=== PATIENT | male | born 1990 | race Hispanic/Latino ===

== ENCOUNTER 2018-11-06 21:30 | Inpatient (IN) | payer MEDICAID ==
[~2018-11-06] VITALS: Ht 185.4 cm; Wt 141.5 kg
[2018-11-06] MEDS ORDERED: CHARCOAL/SORBITOL 50 GM/240 ML SUSP ONE (21:31)
[2018-11-06 21:54] LABS: BASOPHILS % (AUTO) 2.2 % (0.0-5.0); EOSINOPHILS % (AUTO) 2.1 % (0.0-8.0); HEMATOCRIT 46.2 % (42-54); LYMPHOCYTES % (AUTO) 41.4 % (21.0-51.0); MEAN CORPUSCULAR HEMOGLOBIN 31.7 pg (27.0-33.0); MEAN CORPUSCULAR HGB CONC 33.8 g/dL (32.0-36.0); MEAN CORPUSCULAR VOLUME 93.6 fL (79-99); MONOCYTES % (AUTO) 8.9 % (3.0-13.0); NEUTROPHILS % (AUTO) 45.4 % (40.0-77.0); NUCLEATED RED BLOOD CELLS 0.1 % (0.0-0.19); PLATELET COUNT (AUTO) 264 K/uL (130-400); RED BLOOD CELL COUNT(AUTO) 4.93 MIL/uL (4.50-6.20); RED CELL DISTRIBUTION WIDTH 13.3 % (11.0-15.5)
[2018-11-06 21:57] LABS: CARBON DIOXIDE 29 mmol/L (21-32); CHLORIDE 103 mmol/L (101-111); CREATININE 0.8 mg/dL (0.5-1.5); GLOMERULAR FILTR. RATE CALC 122 mL/min (>60); GLUCOSE,RANDOM 133 mg/dL (70-105); POTASSIUM 4.1 mmol/L (3.5-5.1); SODIUM SERUM 142 mmol/L (136-145); UREA NITROGEN, BLOOD 7 mg/dL (7-18)
[2018-11-06 22:09] LABS: ALANINE AMINOTRANSFERASE 176 U/L (12-78); ALBUMIN 3.9 g/dL (3.5-5.0); ASPARTATE AMINOTRANSFERASE 108 U/L (10-37); BILIRUBIN,TOTAL 0.2 mg/dL (0.2-1.0); TOTAL PROTEIN, SERUM 8.2 g/dL (6.0-8.3)
[2018-11-06 22:10] LABS: SALICYLATE < 2.8 mg/dL (2.8-20.0)
[2018-11-06 22:14] LABS: ACETAMINOPHEN 51 mcg/mL (10-29); ALCOHOL, BLOOD 350 mg/dL (0-10)
[2018-11-06 22:24] LABS: INR 0.97 (0.85-1.15); PARTIAL THROMBOPLASTIN TIME 27.6 SEC (26.3-35.5); PROTHROMBIN TIME 10.2 SEC (9.6-11.6)
[2018-11-06 22:30] LABS: BILIRUBIN,URINE Negative (NEGATIVE); COLOR,URINE Yellow (YELLOW); GLUCOSE, URINE (UA) Negative (NEGATIVE); KETONES,URINE Negative (NEGATIVE); LEUKOCYTE ESTERASE ,URINE Negative (NEGATIVE); NITRATE,URINE Negative (NEGATIVE); OCCULT BLOOD,URINE Negative (NEGATIVE); PROTEIN,URINE Negative (NEGATIVE)
[2018-11-06 22:36] LABS: APPEARANCE,URINE CLEAR (CLEAR)
[2018-11-06 22:38] LABS: AMPHET/METH SCREEN,URINE NEGATIVE (NEGATIVE); BARBITURATE SCREEN, URINE NEGATIVE (NEGATIVE); BENZODIAZEPINES SCREEN,URINE NEGATIVE (NEGATIVE); CANNABINOID SCREEN,URINE NEGATIVE (NEGATIVE); COCAINE SCREEN,URINE NEGATIVE (NEGATIVE); OPIATE SCREEN,URINE NEGATIVE (NEGATIVE); PHENCYCLIDINE SCREEN,URINE NEGATIVE (NEGATIVE)
[2018-11-06] MEDS ORDERED: ACETYLCYSTEINE 20% 200MG/ML 30ML VIAL ONE (23:14)
[2018-11-06] MEDS ORDERED: DEXTROSE 5%-WATER 100 ML IV ONE (23:15)
[2018-11-07] MEDS ORDERED: DEXTROSE 5%-WATER 500 ML IV ONE (00:26)
[2018-11-07] MEDS ORDERED: ACETYLCYSTEINE 20% 200MG/ML 30ML VIAL ONE ×2 (00:26→02:11)
[2018-11-07 01:33] LABS: ACETAMINOPHEN 21 mcg/mL (10-29)
[2018-11-07 01:35] LABS: SALICYLATE < 2.8 mg/dL (2.8-20.0)
[2018-11-07 02:14] LABS: ABG BASE EXCESS -2.5 mmol/L (-2.0-3.0); ABG HCO3 23.3 mmol/L (21.0-28.0); ABG OXYGEN SATURATION 95.4 % (95.0-99.0); ABG PCO2 44 mmHg (35-48)
[2018-11-07] MEDS ORDERED: THIAMINE HCL 100 MG/ML 2ML VIAL ONE (02:17)
[2018-11-07] MEDS ORDERED: ONDANSETRON HCL MDV 20ML 2 MG/ML VIAL IVP PRN (03:45)
[2018-11-07] MEDS: LACTATED RINGERS 1000ML 1,000 ML IV SCH ×2 (03:45→11:45)
[2018-11-07] MEDS ORDERED: PHARMACY COMMUNICATION MISC SCH (03:45)
[2018-11-07 04:21] LABS: BASOPHILS % (AUTO) 3.3 % (0.0-5.0); EOSINOPHILS % (AUTO) 2.5 % (0.0-8.0); HEMATOCRIT 43.1 % (42-54); LYMPHOCYTES % (AUTO) 34.9 % (21.0-51.0); MEAN CORPUSCULAR HEMOGLOBIN 31.9 pg (27.0-33.0); MEAN CORPUSCULAR HGB CONC 34.2 g/dL (32.0-36.0); MEAN CORPUSCULAR VOLUME 93.2 fL (79-99); MONOCYTES % (AUTO) 9.8 % (3.0-13.0); NEUTROPHILS % (AUTO) 49.5 % (40.0-77.0); NUCLEATED RED BLOOD CELLS 0.1 % (0.0-0.19); PLATELET COUNT (AUTO) 208 K/uL (130-400); RED BLOOD CELL COUNT(AUTO) 4.62 MIL/uL (4.50-6.20); RED CELL DISTRIBUTION WIDTH 13.2 % (11.0-15.5); WHITE BLOOD COUNT (AUTO) 4.6 K/uL (4.8-10.8)
[2018-11-07 04:33] LABS: CREATININE 0.6 mg/dL (0.5-1.5); POTASSIUM 3.8 mmol/L (3.5-5.1)
[2018-11-07 04:37] LABS: ALBUMIN 3.3 g/dL (3.5-5.0); BILIRUBIN,DIRECT 0.1 mg/dL (0.0-0.3); BILIRUBIN,TOTAL 0.3 mg/dL (0.2-1.0); TOTAL PROTEIN, SERUM 7.4 g/dL (6.0-8.3)
[2018-11-07] MEDS ORDERED: FAMOTIDINE/PF 20 MG/2 ML VIAL IV SCH (09:00)
[2018-11-07] MEDS ORDERED: COMPOUND IV REFRIGERATED 1 EACH IVSOLN MISC PRN (10:30)
[2018-11-07] MEDS ORDERED: FOLIC ACID 5 MG/ML 10 ML VIAL IV SCH (10:30)
[2018-11-07 16:40] VITALS: BP 150/105
[2018-11-07 19:00] VITALS: BP 166/96
[2018-11-07] MEDS: FAMOTIDINE/PF 20 MG/2 ML VIAL IV SCH (21:28)
[2018-11-07] MEDS: HYDRALAZINE HCL 20 MG/ML VIAL IV PRN (21:34)
[2018-11-07 23:00] VITALS: BP 153/82
[2018-11-08] MEDS: LACTATED RINGERS 1000ML 1,000 ML IV SCH ×4 (00:51→19:39)
[2018-11-08 04:00] VITALS: BP 156/88
[2018-11-08 05:59] LABS: HEMATOCRIT 47.2 % (42-54); MEAN CORPUSCULAR HEMOGLOBIN 31.3 pg (27.0-33.0); MEAN CORPUSCULAR HGB CONC 33.6 g/dL (32.0-36.0); MEAN CORPUSCULAR VOLUME 93.3 fL (79-99); PLATELET COUNT (AUTO) 248 K/uL (130-400); RED BLOOD CELL COUNT(AUTO) 5.06 MIL/uL (4.50-6.20); RED CELL DISTRIBUTION WIDTH 13.1 % (11.0-15.5); WHITE BLOOD COUNT (AUTO) 5.5 K/uL (4.8-10.8)
[2018-11-08 06:12] LABS: ALBUMIN 3.7 g/dL (3.5-5.0); BILIRUBIN,DIRECT 0.2 mg/dL (0.0-0.3); BILIRUBIN,TOTAL 1.3 mg/dL (0.2-1.0); CREATININE 0.8 mg/dL (0.5-1.5); POTASSIUM 4.2 mmol/L (3.5-5.1); TOTAL PROTEIN, SERUM 7.7 g/dL (6.0-8.3)
[2018-11-08 08:00] VITALS: BP 145/101
[2018-11-08] MEDS: FAMOTIDINE/PF 20 MG/2 ML VIAL IV SCH ×2 (09:55→21:50)
[2018-11-08] MEDS: THIAMINE HCL 100 MG/ML 2ML VIAL IVP SCH (09:56)
[2018-11-08] MEDS: HYDRALAZINE HCL 20 MG/ML VIAL IV PRN (12:55)
--- NOTE | 2018-11-08 12:55 | NUR ---
PATIENT BLOOD PRESSURE AT 165/105-74 . GAVE HYDRALAZINE 10 MG IV. WILL MONITOR BLOOD PRESSURE IN ONE HOUR.
--- NOTE | 2018-11-08 14:00 | NUR ---
PATIENT BLOOD PRESSURE AT 143/74- 80 . PATIENT IN NO ACUTE DISTRESS NOTED. CONTINUE TO MONITOR BLOOD PRESSURE. SITTER AT BEDSIDE.
[2018-11-08 15:18] VITALS: BP 145/69
--- NOTE | 2018-11-08 15:21 | NUR ---
DR. RAMIREZ HERE INFORMED REGARDING TODA[facility] LABS. NEW ORDERS WERE TO CONTACT POISON [facility] FOR FURTHER RECOMMENDATIONS. SPOKE WITH JUAN CIFUENTES AND NEW ORDERS WERE TO CONTINUE TO MONITOR FOR CONFUSION. NO MUCOMYST IV RECOMMENDED. MONITOR LABS.
--- NOTE | 2018-11-08 15:24 | NUR ---
D/C PLAN CM spoke to pt regarding d/c planning. Pt. is ind. and lives with girlfriend. States she can assist if needed. Pt states he also has support from his mother. CM spoke to pt about mental health history. States this is not first suicide attempt. States he has hx with [facility] but has not f/u in about 2 years. CM explained that [facility] [place] screening will more than likely be ordered prior to discharge. Verbalized understanding. States he is willing to go to inpatient psych facility if ordered. Plan for now is inpatient psych hospital vs home with o/p psych f/u. CM updated nursing. CM to f/u Addendum: 11/08/18 at 1530 by YARY KIRBY CM Amended: Links added.
[2018-11-08] MEDS: FOLIC ACID 5 MG/ML 10 ML VIAL IV SCH (19:36)
[2018-11-08 19:43] VITALS: BP 171/65
[2018-11-08] MEDS ORDERED: PHARMACY COMMUNICATION MISC SCH (20:45)
[2018-11-08 23:26] VITALS: BP 150/77
[2018-11-09] MEDS: LACTATED RINGERS 1000ML 1,000 ML IV SCH ×2 (04:04→13:23)
[2018-11-09 04:16] VITALS: BP 136/85
[2018-11-09 06:01] LABS: HEMATOCRIT 44.9 % (42-54); MEAN CORPUSCULAR HEMOGLOBIN 31.9 pg (27.0-33.0); MEAN CORPUSCULAR HGB CONC 34.6 g/dL (32.0-36.0); PLATELET COUNT (AUTO) 204 K/uL (130-400); RED BLOOD CELL COUNT(AUTO) 4.88 MIL/uL (4.50-6.20); RED CELL DISTRIBUTION WIDTH 13.1 % (11.0-15.5); WHITE BLOOD COUNT (AUTO) 5.8 K/uL (4.8-10.8)
[2018-11-09 06:17] LABS: ALBUMIN 3.6 g/dL (3.5-5.0); BILIRUBIN,DIRECT 0.3 mg/dL (0.0-0.3); BILIRUBIN,TOTAL 1.5 mg/dL (0.2-1.0); CREATININE 0.7 mg/dL (0.5-1.5); POTASSIUM 3.9 mmol/L (3.5-5.1); TOTAL PROTEIN, SERUM 7.7 g/dL (6.0-8.3)
[2018-11-09 08:00] VITALS: BP 153/104
[2018-11-09] MEDS: FAMOTIDINE/PF 20 MG/2 ML VIAL IV SCH ×2 (09:04→20:47)
[2018-11-09] MEDS: MULTIVITAMIN TABLET PO SCH (09:04)
[2018-11-09] MEDS: THIAMINE HCL 100 MG/ML 2ML VIAL IVP SCH (09:04)
[2018-11-09] MEDS: FOLIC ACID 5 MG/ML 10 ML VIAL IV SCH (10:14)
--- NOTE | 2018-11-09 17:00 | NUR ---
ROUNDS WES STRONG VISITED WITH PATIENT. POC DISCUSSED. PER WES STRONG, PATIENT IS MEDICALLY CLEAR AND ORDERS TO CONTACT [facility] AND [facility] TO SCREEN PATIENT. HOWEVER, US ABD ORDER WAS PLACED. VERIFIED WITH TAE ABOUT THIS NEW ORDER AND HE RE-STATED PATIENT IS MEDICALLY CLEAR. CHARGE NURSE AWARE. [facility] SCREENER CONTACTED.
[2018-11-09 23:58] VITALS: BP 119/70
[2018-11-10 05:13] VITALS: BP 123/78
[2018-11-10 06:43] LABS: HEMATOCRIT 44.5 % (42-54); MEAN CORPUSCULAR HEMOGLOBIN 31.7 pg (27.0-33.0); MEAN CORPUSCULAR HGB CONC 34.4 g/dL (32.0-36.0); MEAN CORPUSCULAR VOLUME 92.1 fL (79-99); PLATELET COUNT (AUTO) 207 K/uL (130-400); RED BLOOD CELL COUNT(AUTO) 4.83 MIL/uL (4.50-6.20); RED CELL DISTRIBUTION WIDTH 12.9 % (11.0-15.5); WHITE BLOOD COUNT (AUTO) 6.1 K/uL (4.8-10.8)
[2018-11-10 06:58] LABS: INR 1.03 (0.85-1.15); PARTIAL THROMBOPLASTIN TIME 28.5 SEC (26.3-35.5); PROTHROMBIN TIME 10.8 SEC (9.6-11.6)
[2018-11-10 07:00] VITALS: BP 125/79
[2018-11-10 07:07] LABS: ALBUMIN 3.5 g/dL (3.5-5.0); BILIRUBIN,DIRECT 0.2 mg/dL (0.0-0.3); BILIRUBIN,TOTAL 1.2 mg/dL (0.2-1.0); CREATININE 0.7 mg/dL (0.5-1.5); POTASSIUM 4.1 mmol/L (3.5-5.1); TOTAL PROTEIN, SERUM 7.4 g/dL (6.0-8.3)
[2018-11-10] MEDS: FAMOTIDINE/PF 20 MG/2 ML VIAL IV SCH ×2 (09:00→21:00)
--- NOTE | 2018-11-10 09:00 | NUR ---
DC PLAN? REVIEWED CHART AND NOTES. ORDER NOTED THAT PATIENT IS NOT MEDICALLY CLEAR AT 11/09. WILL FOLLOW UP. PENDING HEART CLINIC CONSULT AT THIS ITME
[2018-11-10] MEDS: LACTATED RINGERS 1000ML 1,000 ML IV SCH ×2 (09:22→21:00)
[2018-11-10] MEDS: THIAMINE HCL 100 MG/ML 2ML VIAL IVP SCH (09:25)
[2018-11-10] MEDS: MULTIVITAMIN TABLET PO SCH (09:26)
[2018-11-10] MEDS: FOLIC ACID 5 MG/ML 10 ML VIAL IV SCH (09:46)
[2018-11-10 11:00] VITALS: BP 127/81
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
[2018-11-10 16:00] VITALS: BP 121/76
--- NOTE | 2018-11-10 17:57 | NUR ---
NIKOLAS NOTE- REVIEWED NOTES BY [place]. ..NIKOLAS ISCONCERNED RE AMT OF ALCOHOL AND POSS WITHDRAWAL. CALL TO RN TO ASK MD FOR POSS MEDS TO PREVENT. CALL TO MATEO CHARGE, RELAYED CONCERN
[2018-11-10 20:00] VITALS: BP 142/80
[2018-11-11] VITALS: BP 132/72
[2018-11-11] MEDS: LACTATED RINGERS 1000ML 1,000 ML IV SCH ×3 (03:48→19:13)
[2018-11-11 04:30] VITALS: BP 130/74
[2018-11-11 05:40] LABS: ALBUMIN 3.3 g/dL (3.5-5.0); BILIRUBIN,DIRECT 0.2 mg/dL (0.0-0.3); BILIRUBIN,TOTAL 0.8 mg/dL (0.2-1.0)
[2018-11-11 07:00] VITALS: BP 140/68
[2018-11-11] MEDS: FAMOTIDINE/PF 20 MG/2 ML VIAL IV SCH ×2 (09:55→21:58)
[2018-11-11] MEDS: THIAMINE HCL 100 MG/ML 2ML VIAL IVP SCH (09:56)
[2018-11-11] MEDS: MULTIVITAMIN TABLET PO SCH (09:56)
[2018-11-11] MEDS: FOLIC ACID 5 MG/ML 10 ML VIAL IV SCH (09:56)
[2018-11-11 11:00] VITALS: BP 128/80
[2018-11-11 16:00] VITALS: BP 135/74
[2018-11-11] MEDS ORDERED: TYLENOL ARTHRITIS PO (16:36)
[2018-11-11 19:30] VITALS: BP 125/70
[2018-11-12 00:20] VITALS: BP 132/71
[2018-11-12] MEDS: LACTATED RINGERS 1000ML 1,000 ML IV SCH ×2 (02:42→09:16)
[2018-11-12 03:29] VITALS: BP 124/60
[2018-11-12 06:03] LABS: ALBUMIN 3.4 g/dL (3.5-5.0); BILIRUBIN,DIRECT 0.2 mg/dL (0.0-0.3); BILIRUBIN,TOTAL 0.6 mg/dL (0.2-1.0); CREATININE 0.8 mg/dL (0.5-1.5); POTASSIUM 3.7 mmol/L (3.5-5.1); TOTAL PROTEIN, SERUM 7.2 g/dL (6.0-8.3)
[2018-11-12 06:30] LABS: HEMOGLOBIN A1C 5.5 % (4.0-6.0)
[2018-11-12 07:15] VITALS: BP 125/74
[2018-11-12 08:23] LABS: HEPATITIS A ANTIBODY IGM Negative (Negative); HEPATITIS B CORE IGM Negative (Negative); HEPATITIS Bs ANTIGEN SCREEN P Negative (Negative)
[2018-11-12] MEDS ORDERED: AMLODIPINE BESYLATE 5 MG TAB PO SCH (09:00)
[2018-11-12] MEDS: FAMOTIDINE/PF 20 MG/2 ML VIAL IV SCH ×2 (09:13→20:59)
[2018-11-12] MEDS: FOLIC ACID 5 MG/ML 10 ML VIAL IV SCH (09:13)
[2018-11-12] MEDS: MULTIVITAMIN TABLET PO SCH (09:13)
[2018-11-12] MEDS: THIAMINE HCL 100 MG/ML 2ML VIAL IVP SCH (09:13)
[2018-11-12 10:50] VITALS: BP 135/61
[2018-11-12 19:48] VITALS: BP 152/75
[2018-11-13 00:07] VITALS: BP 156/80
[2018-11-13 03:00] VITALS: BP 151/78
[2018-11-13 05:46] LABS: ALBUMIN 3.4 g/dL (3.5-5.0); BILIRUBIN,DIRECT 0.2 mg/dL (0.0-0.3); BILIRUBIN,TOTAL 0.6 mg/dL (0.2-1.0); PHOSPHORUS 3.5 mg/dL (2.5-4.9); TOTAL PROTEIN, SERUM 7.3 g/dL (6.0-8.3)
[2018-11-13] MEDS: FAMOTIDINE/PF 20 MG/2 ML VIAL IV SCH ×2 (10:34→22:28)
[2018-11-13] MEDS: MULTIVITAMIN TABLET PO SCH (10:34)
[2018-11-13] MEDS: THIAMINE HCL 100 MG/ML 2ML VIAL IVP SCH (10:34)
[2018-11-13] MEDS: FOLIC ACID 5 MG/ML 10 ML VIAL IV SCH (10:43)
[2018-11-13 20:00] VITALS: BP 130/73
[2018-11-13 23:40] VITALS: BP 131/53
[2018-11-14 03:59] VITALS: BP 124/66
[2018-11-14 06:04] LABS: ALBUMIN 3.6 g/dL (3.5-5.0); BILIRUBIN,DIRECT 0.2 mg/dL (0.0-0.3); BILIRUBIN,TOTAL 0.6 mg/dL (0.2-1.0); TOTAL PROTEIN, SERUM 7.6 g/dL (6.0-8.3)
[2018-11-14 08:00] VITALS: BP 125/66
--- NOTE | 2018-11-14 08:00 | NUR ---
AM ROUNDS: 1:[address] AND IN ROOM.
[2018-11-14] MEDS: FOLIC ACID 5 MG/ML 10 ML VIAL IV SCH (09:00)
[2018-11-14] MEDS ORDERED: AMLODIPINE BESYLATE 5 MG TAB PO SCH (09:00)
[2018-11-14] MEDS: FAMOTIDINE/PF 20 MG/2 ML VIAL IV SCH (10:17)
[2018-11-14] MEDS: THIAMINE HCL 100 MG/ML 2ML VIAL IVP SCH (10:17)
[2018-11-14] MEDS: MULTIVITAMIN TABLET PO SCH (10:18)
[2018-11-14 11:00] VITALS: BP 137/84
--- NOTE | 2018-11-14 12:25 | NUR ---
[facility] [place] CRISIS LINE CALLED REQUEST FOR ASSESSMENT FOR PATIENT. PT MEDICALLY CLEARED FOR DISCHARGE WITH DISPOSITION PER [facility]'S RECOMMENDATIONS
[2018-11-14 16:00] VITALS: BP 124/73
--- NOTE | 2018-11-14 18:14 | NUR ---
REPORT CALLED IN TO [facility], SPOKE TO MINDA HERNANDEZ RN
--- NOTE | 2018-11-14 18:47 | NUR ---
DISCHARGED TO OFFICER [facility]OM WILL TRANSPORT MR. HUNTER TO [facility] IN [place]. COPY OF CHART SENT.SALINE LOCK REMOVED PRIOR TO DISCHARGE.
== END 2018-11-14 18:46 | DRG 817 ==
LOC: EDH 21:30 → EDHIP 21:31 → 3AH 11-07 16:49 → 3BH 11-12 11:43
PROVIDERS: ADMIT Internal Medicine Critical Care Medicine; ATTEND Internal Medicine Critical Care Medicine
DX: T39.1X2A Poisoning by 4-Aminophenol derivatives, intentional self-harm, initial encounter (principal); K76.0 Fatty (change of) liver, not elsewhere classified; E66.01 Morbid (severe) obesity due to excess calories; K70.10 Alcoholic hepatitis without ascites; F10.10 Alcohol abuse, uncomplicated; Z68.41 Body mass index [BMI] 40.0-44.9, adult; F17.200 Nicotine dependence, unspecified, uncomplicated; F32.9 Major depressive disorder, single episode, unspecified; E78.5 Hyperlipidemia, unspecified; I10 Essential (primary) hypertension; Z91.5 Personal history of self-harm; Y92.89 Other specified places as the place of occurrence of the external cause
CPT/HCPCS: 36415; 36600; 76705; 80048; 80053; 80061; 80074; 80076; 80305; 81003; 82150; 82550; 82803; 83036; 83690; 83735; 84100; 85025; 85027; 85610; 85730; 86701; 87390; 93005; G0378; G0480; G0481; J0360; J3411; J3490; J7060; J7120; J7608

== ENCOUNTER 2018-12-09 00:02 | Emergency (ER) | payer MEDICAID ==
[2018-12-09 00:36] LABS: BASOPHILS % (AUTO) 2.7 % (0.0-5.0); EOSINOPHILS % (AUTO) 0.5 % (0.0-8.0); HEMATOCRIT 44.9 % (42-54); LYMPHOCYTES % (AUTO) 29.2 % (21.0-51.0); MEAN CORPUSCULAR HEMOGLOBIN 31.2 pg (27.0-33.0); MEAN CORPUSCULAR HGB CONC 34.7 g/dL (32.0-36.0); MEAN CORPUSCULAR VOLUME 89.8 fL (79-99); MONOCYTES % (AUTO) 7.2 % (3.0-13.0); NEUTROPHILS % (AUTO) 60.4 % (40.0-77.0); PLATELET COUNT (AUTO) 177 K/uL (130-400); RED CELL DISTRIBUTION WIDTH 12.9 % (11.0-15.5); WHITE BLOOD COUNT (AUTO) 6.6 K/uL (4.8-10.8)
[2018-12-09 00:39] LABS: CARBON DIOXIDE 26 mmol/L (21-32); CHLORIDE 104 mmol/L (101-111); CREATININE 0.8 mg/dL (0.5-1.5); GLOMERULAR FILTR. RATE CALC 122 mL/min (>60); GLUCOSE,RANDOM 116 mg/dL (70-105); POTASSIUM 3.7 mmol/L (3.5-5.1); SODIUM SERUM 143 mmol/L (136-145); UREA NITROGEN, BLOOD 4 mg/dL (7-18)
[2018-12-09 00:44] LABS: ALANINE AMINOTRANSFERASE 61 U/L (12-78); ALBUMIN 4.1 g/dL (3.5-5.0); ASPARTATE AMINOTRANSFERASE 73 U/L (10-37); BILIRUBIN,TOTAL 0.4 mg/dL (0.2-1.0); TOTAL PROTEIN, SERUM 8.2 g/dL (6.0-8.3)
[2018-12-09 00:48] LABS: ACETAMINOPHEN < 1 mcg/mL (10-29); SALICYLATE < 2.8 mg/dL (2.8-20.0)
[2018-12-09 00:50] LABS: ALCOHOL, BLOOD 416 mg/dL (0-10)
[2018-12-09] MEDS ORDERED: ONDANSETRON HCL 4 MG/2 ML VIAL ONE (02:03)
[2018-12-09 07:50] LABS: AMPHET/METH SCREEN,URINE NEGATIVE (NEGATIVE); BARBITURATE SCREEN, URINE NEGATIVE (NEGATIVE); BENZODIAZEPINES SCREEN,URINE NEGATIVE (NEGATIVE); CANNABINOID SCREEN,URINE NEGATIVE (NEGATIVE); COCAINE SCREEN,URINE POSITIVE (NEGATIVE); OPIATE SCREEN,URINE NEGATIVE (NEGATIVE); PHENCYCLIDINE SCREEN,URINE NEGATIVE (NEGATIVE)
[2018-12-09 07:52] LABS: APPEARANCE,URINE CLEAR (CLEAR); BILIRUBIN,URINE NEGATIVE (NEGATIVE); COLOR,URINE YELLOW (YELLOW); GLUCOSE, URINE (UA) NEGATIVE (NEGATIVE); KETONES,URINE NEGATIVE (NEGATIVE); LEUKOCYTE ESTERASE ,URINE NEGATIVE (NEGATIVE); NITRATE,URINE NEGATIVE (NEGATIVE); OCCULT BLOOD,URINE NEGATIVE (NEGATIVE); PH,URINE 5.5 (5.0-8.0); PROTEIN,URINE NEGATIVE (NEGATIVE); UROBILINOGEN,URINE 0.2 mg/dL (0.2-1.0)
[2018-12-09] MEDS ORDERED: SODIUM CHLORIDE 0.9% 1000ML 1,000 ML IV ONE (22:46)
== END 2018-12-09 18:51 | disposition home or self-care (01) ==
LOC: EDH 00:02
DX: T39.1X2A Poisoning by 4-Aminophenol derivatives, intentional self-harm, initial encounter (principal); F10.10 Alcohol abuse, uncomplicated; F14.10 Cocaine abuse, uncomplicated; I10 Essential (primary) hypertension; F31.9 Bipolar disorder, unspecified; F20.9 Schizophrenia, unspecified; F41.9 Anxiety disorder, unspecified; Z79.899 Other long term (current) drug therapy; Z72.0 Tobacco use; Y92.89 Other specified places as the place of occurrence of the external cause
CPT/HCPCS: 36415; 80053; 80305; 81003; 85025; 99284; G0480 ×5; G0481; J7030; J2405

== ENCOUNTER 2018-12-12 17:39 | Inpatient (IN) | payer MEDICAID ==
[~2018-12-12] VITALS: Ht 185.4 cm; Wt 140.2 kg
[2018-12-12] MEDS ORDERED: NITROGLYCERIN 0.4 MG SL TAB SL ONE (17:45)
[2018-12-12] MEDS ORDERED: MORPHINE SULFATE 2 MG/ML 1ML SYG ONE (17:53)
[2018-12-12 18:04] LABS: BASOPHILS % (AUTO) 1.4 % (0.0-5.0); EOSINOPHILS % (AUTO) 0.4 % (0.0-8.0); HEMATOCRIT 43.3 % (42-54); LYMPHOCYTES % (AUTO) 13.8 % (21.0-51.0); MEAN CORPUSCULAR HEMOGLOBIN 31.1 pg (27.0-33.0); MEAN CORPUSCULAR HGB CONC 35.1 g/dL (32.0-36.0); MEAN CORPUSCULAR VOLUME 88.6 fL (79-99); MONOCYTES % (AUTO) 8.6 % (3.0-13.0); NEUTROPHILS % (AUTO) 75.8 % (40.0-77.0); NUCLEATED RED BLOOD CELLS 0.1 % (0.0-0.19); PLATELET COUNT (AUTO) 133 K/uL (130-400); RED BLOOD CELL COUNT(AUTO) 4.89 MIL/uL (4.50-6.20); RED CELL DISTRIBUTION WIDTH 12.5 % (11.0-15.5); WHITE BLOOD COUNT (AUTO) 9.9 K/uL (4.8-10.8)
[2018-12-12 18:12] LABS: CREATININE 0.6 mg/dL (0.5-1.5); POTASSIUM 3.8 mmol/L (3.5-5.1)
[2018-12-12 18:15] LABS: INR 0.97 (0.85-1.15); PARTIAL THROMBOPLASTIN TIME 28.6 SEC (26.3-35.5); PROTHROMBIN TIME 10.2 SEC (9.6-11.6)
[2018-12-12 18:23] LABS: ALBUMIN 3.8 g/dL (3.5-5.0); BILIRUBIN,TOTAL 1.3 mg/dL (0.2-1.0); TOTAL PROTEIN, SERUM 8.1 g/dL (6.0-8.3)
[2018-12-12] MEDS: IBUPROFEN 600 MG TABLET PO SCH (18:45)
[2018-12-12] MEDS ORDERED: IBUPROFEN 600 MG TABLET ONE (18:47)
[2018-12-12 19:35] LABS: TROPONIN I 0.14 ng/mL (0.00-0.06)
[2018-12-12] MEDS: COLCHICINE 0.6 MG TABLET PO SCH (21:00)
[2018-12-12] MEDS ORDERED: ASPIRIN 325MG EC TAB 325 MG TABLET.DR PO STA (21:04)
[2018-12-12] MEDS ORDERED: ACETAMINOPHEN 325 MG TAB PO PRN ×2 (21:30)
[2018-12-12] MEDS ORDERED: HYDRALAZINE HCL 20 MG/ML VIAL IV PRN (21:30)
[2018-12-12] MEDS ORDERED: NITROGLYCERIN 0.4 MG SL TAB SL PRN (21:30)
[2018-12-12] MEDS ORDERED: ONDANSETRON HCL 4 MG/2 ML VIAL IV PRN (21:30)
[2018-12-12] MEDS ORDERED: IBUPROFEN 600 MG TABLET PO SCH (22:00)
[2018-12-12] MEDS ORDERED: ASPIRIN 325MG EC TAB 325 MG TABLET.DR PO ONE (22:49)
[2018-12-12 23:00] VITALS: BP 103/57
[2018-12-12] MEDS: SODIUM CHLORIDE 0.9% 1000ML 1,000 ML IV SCH (23:28)
[2018-12-13 00:05] LABS: TROPONIN I 0.34 ng/mL (0.00-0.06)
[2018-12-13] MEDS ORDERED: LORAZEPAM 2 MG/ML 1 ML VIAL IVP PRN ×4 (01:30)
[2018-12-13] MEDS ORDERED: PROMETHAZINE HCL 25 MG TABLET PO PRN (01:30)
[2018-12-13] MEDS ORDERED: CHLORDIAZEPOXIDE HCL 25 MG CAP PO PRN ×4 (01:30)
[2018-12-13 01:54] LABS: APPEARANCE,URINE Clear (CLEAR); BILIRUBIN,URINE Moderate (NEGATIVE); COLOR,URINE Orange (YELLOW); GLUCOSE, URINE (UA) Negative (NEGATIVE); KETONES,URINE 40 mg/dL (NEGATIVE); LEUKOCYTE ESTERASE ,URINE Trace (NEGATIVE); NITRATE,URINE Positive (NEGATIVE); OCCULT BLOOD,URINE Negative (NEGATIVE); PH,URINE 5.5 (5.0-8.0); PROTEIN,URINE POS 1+ mg/dL (NEGATIVE)
[2018-12-13 02:03] LABS: AMPHET/METH SCREEN,URINE NEGATIVE (NEGATIVE); BARBITURATE SCREEN, URINE NEGATIVE (NEGATIVE); BENZODIAZEPINES SCREEN,URINE NEGATIVE (NEGATIVE); CANNABINOID SCREEN,URINE NEGATIVE (NEGATIVE); COCAINE SCREEN,URINE POSITIVE (NEGATIVE); OPIATE SCREEN,URINE POSITIVE (NEGATIVE); PHENCYCLIDINE SCREEN,URINE NEGATIVE (NEGATIVE)
[2018-12-13] MEDS: IBUPROFEN 600 MG TABLET PO SCH ×3 (02:18→21:42)
[2018-12-13] MEDS: DIPHENHYDRAMINE HCL 25 MG CAPSULE PO SCH ×2 (02:18→21:42)
[2018-12-13 02:20] LABS: BACTERIA,URINE None Seen /HPF (None Seen); MUCUS,URINE Moderate LPF (None Seen); RBC,URINE None Seen /HPF (0-1); SQUAMOUS EPITHELIAL CELL,UR Rare /HPF (0-2); WBC,URINE None Seen /HPF (0-1)
[2018-12-13 03:00] VITALS: BP 136/63
[2018-12-13] MEDS ORDERED: ZOSYN 3.375GM+NS 50ML 50 ML IV SCH (06:00)
[2018-12-13 06:22] LABS: EOSINOPHILS % (AUTO) 1.8 % (0.0-8.0); LYMPHOCYTES % (AUTO) 21.6 % (21.0-51.0); MEAN CORPUSCULAR HEMOGLOBIN 30.6 pg (27.0-33.0); MEAN CORPUSCULAR HGB CONC 34.2 g/dL (32.0-36.0); MEAN CORPUSCULAR VOLUME 89.5 fL (79-99); MONOCYTES % (AUTO) 9.5 % (3.0-13.0); NEUTROPHILS % (AUTO) 66.1 % (40.0-77.0); PLATELET COUNT (AUTO) 132 K/uL (130-400); RED BLOOD CELL COUNT(AUTO) 4.81 MIL/uL (4.50-6.20); RED CELL DISTRIBUTION WIDTH 12.9 % (11.0-15.5); WHITE BLOOD COUNT (AUTO) 7.7 K/uL (4.8-10.8)
[2018-12-13 07:00] VITALS: BP 152/88
[2018-12-13 07:13] LABS: MAGNESIUM 2.1 mg/dL (1.80-2.40); PHOSPHORUS 3.1 mg/dL (2.5-4.9); TROPONIN I 0.4 ng/mL (0.00-0.06)
[2018-12-13] MEDS: SODIUM CHLORIDE 0.9% 1000ML 1,000 ML IV SCH (07:19)
[2018-12-13 07:44] LABS: ALBUMIN 3.4 g/dL (3.5-5.0); BILIRUBIN,TOTAL 1.7 mg/dL (0.2-1.0); CREATININE 0.7 mg/dL (0.5-1.5); POTASSIUM 3.6 mmol/L (3.5-5.1); TOTAL PROTEIN, SERUM 7.4 g/dL (6.0-8.3)
--- NOTE | 2018-12-13 08:00 | NUR ---
ASSESSMENT PT IS AAOX3. DENIES CP DENIES SOB WHILE AT REST. DENIES NV NO COMPLAINTS. SITTING UPRIGHT IN BED, TOLERATED MEAL AND MEDS. CALL LIGHT WITHIN REACH.
[2018-12-13] MEDS: MULTIVITAMIN TABLET PO SCH (08:10)
[2018-12-13] MEDS: COLCHICINE 0.6 MG TABLET PO SCH ×2 (08:10→21:40)
[2018-12-13] MEDS: ENOXAPARIN SODIUM 30 MG/0.3 ML SQ SCH (08:11)
[2018-12-13] MEDS: PANTOPRAZOLE SODIUM 40 MG TABLET.DR PO SCH (08:11)
[2018-12-13] MEDS: FOLIC ACID 1 MG TABLET PO SCH (08:11)
[2018-12-13] MEDS ORDERED: PANTOPRAZOLE SODIUM 40 MG TABLET.DR PO SCH (09:00)
[2018-12-13] MEDS ORDERED: ASPIRIN 325MG EC TAB 325 MG TABLET.DR PO SCH (09:00)
[2018-12-13] MEDS ORDERED: FAMOTIDINE 20MG TAB 20 MG TAB PO SCH (09:00)
[2018-12-13] MEDS ORDERED: THIAMINE HCL 100 MG/ML 2ML VIAL IM SCH (09:00)
--- NOTE | 2018-12-13 10:30 | NUR ---
DR SUKHWINDER BURNS SAW PATIENT ORDERS RECEIVED
[2018-12-13 11:00] VITALS: BP 144/80
[2018-12-13 16:00] VITALS: BP 132/75
--- NOTE | 2018-12-13 17:53 | NUR ---
cm note met with patient and resides at home with mother and sister, pt is independent with adls and ambulation. no dme. goes to [facility] for md followup and discussed with pt importance of not abusing alcohol and drugs, affects his clinical health. pt states he understands, and he has been going to [facility] as OP for assitance with alcohol and drug recovery, provided pt with list of drug and alcohol resources. states he will continue to avoid drug abuse. and will follwup with mds. and clinic. Addendum: 12/13/18 at 1756 by VALENTINA STEARNS Amended: Links added.
[2018-12-13 18:52] VITALS: BP 136/73
--- NOTE | 2018-12-13 20:10 | NUR ---
ASSESSMENT PT RESTING QUIETLY IN BED. PT AAOX4, PLEASANT, AND COOPERATIVE, NSR, ROOM AIR, UP WITH ASSISTANCE. PT C/O PAIN "2/10" ON PAIN SCALE CHEST TO RIGHT SHOULDER. SEE EJOSE. CALL JIMENES WITHIN REACH. ASSESSMENT COMPLETED, SEE FLOW SHEET.
--- NOTE | 2018-12-13 22:35 | NUR ---
PT REQUESTING SLEEPING PILL EXPLOSIVE ORDNANCE DISPOSAL TECHNICIAN FOR HOSPITALIST. MADE AWARE OF PT REQUEST FOR SLEEPING PILL. SEE ORDERS
[2018-12-13] MEDS ORDERED: TEMAZEPAM 7.5 MG CAPSULE PO ONE (23:00)
[2018-12-13 23:20] VITALS: BP 139/76
--- NOTE | 2018-12-14 00:10 | NUR ---
UP-DATE PT RESTING QUIETLY IN BED, CALLBELL WITHIN REACH. CURRENTLY DENIES ANY PAIN
[2018-12-14] MEDS ORDERED: TEMAZEPAM 7.5 MG CAPSULE PO ONE (00:22)
[2018-12-14 03:32] VITALS: BP 151/72
[2018-12-14 04:09] LABS: HEMATOCRIT 41.3 % (42-54); MEAN CORPUSCULAR HGB CONC 34.4 g/dL (32.0-36.0); MEAN CORPUSCULAR VOLUME 89.9 fL (79-99); NUCLEATED RED BLOOD CELLS 0.1 % (0.0-0.19); PLATELET COUNT (AUTO) 130 K/uL (130-400); RED BLOOD CELL COUNT(AUTO) 4.59 MIL/uL (4.50-6.20); WHITE BLOOD COUNT (AUTO) 6.9 K/uL (4.8-10.8)
[2018-12-14 04:24] LABS: EOSINOPHILS % (MANUAL) 6 % (1-6); LYMPHOCYTES % (MANUAL) 38 % (22-44); MAN.DIFF COMMENT-IMPRESSION MANUAL DIFFERENTIAL; MONOCYTES % (MANUAL) 4 % (2-9); PLATELET MORPHOLOGY COMMENT SLIGHTLY DECREASED; SEGMENTED NEUTROPHILS % 52 % (40-70)
[2018-12-14 04:28] LABS: CREATININE 0.8 mg/dL (0.5-1.5); POTASSIUM 3.7 mmol/L (3.5-5.1); TROPONIN I 0.13 ng/mL (0.00-0.06)
--- NOTE | 2018-12-14 04:46 | NUR ---
UP-DATE PT RESTING QUIETLY IN BED, CURRENTLY DENIES ANY PAIN OR S.O.B. CALLBELL WITHIN REACH.
[2018-12-14] MEDS: IBUPROFEN 600 MG TABLET PO SCH (05:54)
[2018-12-14 07:00] VITALS: BP 132/70
--- NOTE | 2018-12-14 07:00 | NUR ---
REPORT REPORT GIVEN TO OFELIA CIFUENTES
--- NOTE | 2018-12-14 08:00 | NUR ---
ASSESSMENT AAOX4 DENIES CP DENIES SOB DENIES NV NO COMPLAINTS, APPEARS COMFORTABLE. RESTING IN BED, CALL LIGHT WITHIN REACH.
[2018-12-14] MEDS: COLCHICINE 0.6 MG TABLET PO SCH (08:04)
[2018-12-14] MEDS: PANTOPRAZOLE SODIUM 40 MG TABLET.DR PO SCH (08:05)
[2018-12-14] MEDS: MULTIVITAMIN TABLET PO SCH (08:05)
[2018-12-14] MEDS: FOLIC ACID 1 MG TABLET PO SCH (08:05)
[2018-12-14] MEDS: ENOXAPARIN SODIUM 30 MG/0.3 ML SQ SCH (08:06)
[2018-12-14] MEDS ORDERED: ASPIRIN 81MG TAB.CHEW PO SCH (09:00)
[2018-12-14] MEDS ORDERED: THIAMINE HCL 100 MG/ML 2ML VIAL IV SCH (09:00)
[2018-12-14 11:00] VITALS: BP 137/80
--- NOTE | 2018-12-14 12:00 | NUR ---
DR PRETTY ROUNDED OK TO DC HOME TODAY.
--- NOTE | 2018-12-14 12:48 | NUR ---
DISCHARGE TO HOME PT AND FAMILY VERBALIZE DC INSTRUCTIONS UNDERSTANDING, AGREE TO TAKE MEDICATION ORDERED AND FOLLOW UP WITH DR QUEEN. AGREE TO STOP ILLICIT DRUG USE. ALL QUESTIONS ANSWERED, PIV REMOVED CATH TIP INTACT TELE PACK REMOVED .DOWN VIA WC TO VEHICLE.
== END 2018-12-14 12:15 | disposition home or self-care (01) | DRG 207 ==
LOC: EDH 17:39 → EDHIP 17:40 → 2AH 23:05
PROVIDERS: ADMIT Internal Medicine; ATTEND Internal Medicine
DX: I30.9 Acute pericarditis, unspecified (principal); E66.01 Morbid (severe) obesity due to excess calories; N39.0 Urinary tract infection, site not specified; Z68.41 Body mass index [BMI] 40.0-44.9, adult; F14.10 Cocaine abuse, uncomplicated; F41.9 Anxiety disorder, unspecified; F10.10 Alcohol abuse, uncomplicated; F17.200 Nicotine dependence, unspecified, uncomplicated; F20.9 Schizophrenia, unspecified; F31.9 Bipolar disorder, unspecified; I10 Essential (primary) hypertension; Z82.3 Family history of stroke; Z83.3 Family history of diabetes mellitus; Z82.49 Family history of ischemic heart disease and other diseases of the circulatory system
CPT/HCPCS: 36415; 71045; 80048; 80053; 80061; 80305; 81001; 82550; 83735; 83874; 84100; 84484; 85025; 85610; 85651; 85730; 86140; 87040; 87088; 93005; 93306; 99291; G0378; J1650; J2543; J3411; Q0163

== ENCOUNTER 2020-01-01 09:01 | Emergency (ER) | payer MEDICAID, OTHER ==
[2020-01-01 12:05] LABS: CREATININE 0.7 mg/dL (0.5-1.5); POTASSIUM 3.5 mmol/L (3.5-5.1)
[2020-01-01 12:10] LABS: ALBUMIN 3.7 g/dL (3.5-5.0); BILIRUBIN,TOTAL 0.9 mg/dL (0.2-1.0); TOTAL PROTEIN, SERUM 7.9 g/dL (6.0-8.3)
[2020-01-01 12:21] LABS: BASOPHILS % (AUTO) 1.5 % (0.0-5.0); HEMATOCRIT 39.1 % (42-54); LYMPHOCYTES % (AUTO) 38.3 % (21.0-51.0); MEAN CORPUSCULAR HEMOGLOBIN 31.1 pg (27.0-33.0); MEAN CORPUSCULAR HGB CONC 34.8 g/dL (32.0-36.0); MEAN CORPUSCULAR VOLUME 89.5 fL (79-99); MONOCYTES % (AUTO) 9.3 % (3.0-13.0); NEUTROPHILS % (AUTO) 49.6 % (40.0-77.0); PLATELET COUNT (AUTO) 58 K/uL (130-400); RED BLOOD CELL COUNT(AUTO) 4.37 MIL/uL (4.50-6.20); RED CELL DISTRIBUTION WIDTH 13.5 % (11.0-15.5); WHITE BLOOD COUNT (AUTO) 5.9 K/uL (4.8-10.8)
== END 2020-01-01 13:44 | disposition home or self-care (01) ==
LOC: EDH 09:01
DX: F41.1 Generalized anxiety disorder (principal); R06.02 Shortness of breath; R07.89 Other chest pain; F10.20 Alcohol dependence, uncomplicated; R11.2 Nausea with vomiting, unspecified; I10 Essential (primary) hypertension; F31.9 Bipolar disorder, unspecified; F20.9 Schizophrenia, unspecified; F14.10 Cocaine abuse, uncomplicated
CPT/HCPCS: 36415; 71045; 80053; 85025; 93005; 96360

== ENCOUNTER 2021-02-19 11:09 | Inpatient (IN) | payer SELFPAY ==
[~2021-02-19] VITALS: Ht 182.9 cm; Wt 90.0 kg
[2021-02-19 11:55] VITALS: BP 154/96
[2021-02-19 12:00] LABS: BASOPHILS % (AUTO) 1.6 % (0.0-5.0); EOSINOPHILS % (AUTO) 5.8 % (0.0-8.0); HEMATOCRIT 39.5 % (42-54); LYMPHOCYTES % (AUTO) 32.2 % (21.0-51.0); MEAN CORPUSCULAR HEMOGLOBIN 30.5 pg (27.0-33.0); MEAN CORPUSCULAR HGB CONC 34.2 g/dL (32.0-36.0); MEAN CORPUSCULAR VOLUME 89.2 fL (79-99); MONOCYTES % (AUTO) 9.5 % (3.0-13.0); NEUTROPHILS % (AUTO) 50.5 % (40.0-77.0); PLATELET COUNT (AUTO) 68 K/uL (130-400); RED BLOOD CELL COUNT(AUTO) 4.43 MIL/uL (4.50-6.20); RED CELL DISTRIBUTION WIDTH 13.5 % (11.0-15.5); WHITE BLOOD COUNT (AUTO) 4.9 K/uL (4.8-10.8)
[2021-02-19 12:08] LABS: INR 1.17 (0.85-1.15); PROTHROMBIN TIME 12.6 SEC (9.6-11.6)
[2021-02-19 12:09] LABS: PARTIAL THROMBOPLASTIN TIME 30.4 SEC (26.3-35.5)
[2021-02-19 12:42] LABS: CREATININE 0.6 mg/dL (0.5-1.5); POTASSIUM 3.7 mmol/L (3.5-5.1)
[2021-02-19] MEDS ORDERED: ONDANSETRON HCL 4 MG/2 ML VIAL IVP ONE (12:45)
[2021-02-19] MEDS ORDERED: SODIUM CHLORIDE 0.9% 1000ML 1,000 ML IV ONE (12:45)
[2021-02-19] MEDS ORDERED: PANTOPRAZOLE 40 MG/VIAL IVP ONE (12:45)
[2021-02-19 12:46] LABS: ALBUMIN 3.7 g/dL (3.5-5.0); BILIRUBIN,TOTAL 1.3 mg/dL (0.2-1.0); TOTAL PROTEIN, SERUM 8.1 g/dL (6.0-8.3)
[2021-02-19 13:07] VITALS: BP 168/74
[2021-02-19 13:32] LABS: LIPASE 82 U/L (114-286); MYOGLOBIN 108 ng/mL (10-92); TROPONIN I < 0.04 ng/mL (0.00-0.06)
[2021-02-19 13:44] LABS: CREATINE KINASE, TOTAL 1352 U/L (21-232)
[2021-02-19 14:12] VITALS: BP 133/81
[2021-02-19] MEDS: OXYMETAZOLINE HCL SPRAY 15 ML BOTTLE EN SCH (14:47)
[2021-02-19 15:00] LABS: APPEARANCE,URINE Clear (CLEAR); BILIRUBIN,URINE Negative (NEGATIVE); COLOR,URINE Yellow (YELLOW); GLUCOSE, URINE (UA) Negative (NEGATIVE); KETONES,URINE Trace mg/dL (NEGATIVE); LEUKOCYTE ESTERASE ,URINE Negative (NEGATIVE); NITRATE,URINE Negative (NEGATIVE); OCCULT BLOOD,URINE Negative (NEGATIVE); PH,URINE 7.5 (5.0-8.0); PROTEIN,URINE Negative (NEGATIVE)
[2021-02-19] MEDS ORDERED: PANTOPRAZOLE 40 MG/VIAL IVP SCH (15:00)
[2021-02-19] MEDS ORDERED: LORAZEPAM 2 MG/ML 1 ML VIAL IVP PRN (15:00)
[2021-02-19] MEDS ORDERED: OCTREOTIDE ACETATE 100 MCG/ML AMP SQ SCH (15:00)
[2021-02-19] MEDS ORDERED: CHLORDIAZEPOXIDE HCL 25 MG CAP PO PRN (15:00)
[2021-02-19] MEDS ORDERED: PHARMACY COMMUNICATION MISC PRN (15:00)
[2021-02-19 15:07] LABS: AMPHET/METH SCREEN,URINE NEGATIVE (NEGATIVE); BARBITURATE SCREEN, URINE NEGATIVE (NEGATIVE); BENZODIAZEPINES SCREEN,URINE NEGATIVE (NEGATIVE); CANNABINOID SCREEN,URINE POSITIVE (NEGATIVE); COCAINE SCREEN,URINE POSITIVE (NEGATIVE); OPIATE SCREEN,URINE NEGATIVE (NEGATIVE); PHENCYCLIDINE SCREEN,URINE NEGATIVE (NEGATIVE)
[2021-02-19 16:17] LABS: HEMATOCRIT 38.9 % (42-54)
[2021-02-19] MEDS: M.V.I. IV [ADULT] 10 ML, FOLIC ACID 1 MG, THIAMINE HCL 100 MG in SODIUM CHLORIDE 0.9% 1... IV NR (16:17)
[2021-02-19] MEDS: PANTOPRAZOLE SODIUM 80 MG in SODIUM CHLORIDE 0.9% 100 ML IVP SCH (16:18)
[2021-02-19] MEDS: OCTREOTIDE ACETATE 1,250 MCG in SODIUM CHLORIDE 0.9% 250 ML IV SCH (16:18)
[2021-02-19 17:29] VITALS: BP 133/81
[2021-02-19 19:35] VITALS: BP 141/93
[2021-02-20] VITALS (8 sets, daily range): BP systolic 132–161; BP diastolic 64–85
[2021-02-20] MEDS ORDERED: PANTOPRAZOLE 40 MG/VIAL ONE (05:27)
[2021-02-20 05:32] LABS: BASOPHILS % (AUTO) 1.6 % (0.0-5.0); EOSINOPHILS % (AUTO) 6.8 % (0.0-8.0); HEMATOCRIT 37.3 % (42-54); LYMPHOCYTES % (AUTO) 16.1 % (21.0-51.0); MEAN CORPUSCULAR HEMOGLOBIN 30.5 pg (27.0-33.0); MEAN CORPUSCULAR VOLUME 89.4 fL (79-99); MONOCYTES % (AUTO) 10.6 % (3.0-13.0); NEUTROPHILS % (AUTO) 64.6 % (40.0-77.0); PLATELET COUNT (AUTO) 51 K/uL (130-400); RED BLOOD CELL COUNT(AUTO) 4.17 MIL/uL (4.50-6.20); RED CELL DISTRIBUTION WIDTH 13.2 % (11.0-15.5); WHITE BLOOD COUNT (AUTO) 3.7 K/uL (4.8-10.8)
[2021-02-20 06:02] LABS: ALBUMIN 3.5 g/dL (3.5-5.0); BILIRUBIN,TOTAL 2.3 mg/dL (0.2-1.0); CREATININE 0.7 mg/dL (0.5-1.5); TOTAL PROTEIN, SERUM 7.6 g/dL (6.0-8.3)
[2021-02-20] MEDS: PANTOPRAZOLE SODIUM 80 MG in SODIUM CHLORIDE 0.9% 100 ML IVP SCH ×2 (06:13→15:43)
[2021-02-20] MEDS: M.V.I. IV [ADULT] 10 ML, FOLIC ACID 1 MG, THIAMINE HCL 100 MG in SODIUM CHLORIDE 0.9% 1... IV NR (09:00)
[2021-02-20 11:25] LABS: HEMATOCRIT 37.8 % (42-54)
[2021-02-20 17:22] LABS: HEMATOCRIT 38.5 % (42-54)
[2021-02-20] MEDS: OXYMETAZOLINE HCL SPRAY 15 ML BOTTLE EN SCH (17:57)
[2021-02-20 23:02] LABS: HEMATOCRIT 38.6 % (42-54)
[2021-02-21] VITALS (17 sets, daily range): BP systolic 99–154; BP diastolic 50–96
[2021-02-21] MEDS ORDERED: KETOROLAC 30MG VIAL (30MG/ML) ONE (04:26)
[2021-02-21] MEDS: PANTOPRAZOLE SODIUM 80 MG in SODIUM CHLORIDE 0.9% 100 ML IVP SCH ×2 (04:29→10:19)
[2021-02-21] MEDS ORDERED: KETOROLAC 15MG/ML VIAL (15MG/ML) IV SCH (04:30)
[2021-02-21 04:33] LABS: BASOPHILS % (AUTO) 0.9 % (0.0-5.0); EOSINOPHILS % (AUTO) 4.6 % (0.0-8.0); HEMATOCRIT 39.2 % (42-54); LYMPHOCYTES % (AUTO) 12.3 % (21.0-51.0); MEAN CORPUSCULAR HEMOGLOBIN 30.5 pg (27.0-33.0); MEAN CORPUSCULAR HGB CONC 34.4 g/dL (32.0-36.0); MEAN CORPUSCULAR VOLUME 88.7 fL (79-99); MONOCYTES % (AUTO) 11.6 % (3.0-13.0); NEUTROPHILS % (AUTO) 70.1 % (40.0-77.0); PLATELET COUNT (AUTO) 57 K/uL (130-400); RED BLOOD CELL COUNT(AUTO) 4.42 MIL/uL (4.50-6.20); RED CELL DISTRIBUTION WIDTH 12.8 % (11.0-15.5); WHITE BLOOD COUNT (AUTO) 5.7 K/uL (4.8-10.8)
[2021-02-21 04:49] LABS: CREATININE 0.7 mg/dL (0.5-1.5); POTASSIUM 3.7 mmol/L (3.5-5.1)
[2021-02-21 08:58] LABS: HEMATOCRIT 39.1 % (42-54)
[2021-02-21] MEDS: OXYMETAZOLINE HCL SPRAY 15 ML BOTTLE EN SCH (10:17)
[2021-02-21] MEDS: M.V.I. IV [ADULT] 10 ML, FOLIC ACID 1 MG, THIAMINE HCL 100 MG in SODIUM CHLORIDE 0.9% 1... IV NR (10:17)
[2021-02-21] MEDS: OCTREOTIDE ACETATE 1,250 MCG in SODIUM CHLORIDE 0.9% 250 ML IV SCH (10:18)
[2021-02-21] MEDS ORDERED: PROPOFOL 10 MG/ML 20ML VIAL IV ONE (11:11)
[2021-02-21] MEDS ORDERED: PANTOPRAZOLE 40 MG/VIAL IVP SCH (21:00)
== END 2021-02-21 19:50 | disposition home or self-care (01) | DRG 368 ==
LOC: EDH 11:09 → EDHIP 11:10 → 4CH 02-20 07:40
PROVIDERS: ADMIT Internal Medicine; ATTEND Internal Medicine
PROC: 0DJ08ZZ Inspection of Upper Intestinal Tract, Via Natural or Artificial Opening Endoscopic (ICD-10-PCS; principal; 2021-02-21)
DX: K21.01 Gastro-esophageal reflux disease with esophagitis, with bleeding (principal); K25.4 Chronic or unspecified gastric ulcer with hemorrhage; M62.82 Rhabdomyolysis; D68.4 Acquired coagulation factor deficiency; D62 Acute posthemorrhagic anemia; F10.139 Alcohol abuse with withdrawal, unspecified; I85.10 Secondary esophageal varices without bleeding; K70.30 Alcoholic cirrhosis of liver without ascites; K70.10 Alcoholic hepatitis without ascites; R04.0 Epistaxis; D69.59 Other secondary thrombocytopenia; F14.10 Cocaine abuse, uncomplicated; F12.10 Cannabis abuse, uncomplicated; F31.9 Bipolar disorder, unspecified; Z20.822 Contact with and (suspected) exposure to COVID-19; E78.00 Pure hypercholesterolemia, unspecified; E78.5 Hyperlipidemia, unspecified; F17.210 Nicotine dependence, cigarettes, uncomplicated; I12.9 Hypertensive chronic kidney disease with stage 1 through stage 4 chronic kidney disease, or unspecified chronic kidney disease; J45.909 Unspecified asthma, uncomplicated; N18.9 Chronic kidney disease, unspecified; E66.9 Obesity, unspecified; F41.9 Anxiety disorder, unspecified; Y90.6 Blood alcohol level of 120-199 mg/100 ml; Z82.3 Family history of stroke; Z82.49 Family history of ischemic heart disease and other diseases of the circulatory system; Z83.3 Family history of diabetes mellitus; Z87.11 Personal history of peptic ulcer disease; Z91.14 Patient's other noncompliance with medication regimen; Z91.19 Patient's noncompliance with other medical treatment and regimen; Z68.26 Body mass index [BMI] 26.0-26.9, adult
CPT/HCPCS: 36415; 43235; 70490; 71045; 74176; 76705; 80048; 80053; 80305; 81003; 82550; 83690; 83874; 83880; 84484; 85014; 85018; 85025; 85610; 85730; 87088; 87426; 93005; 93970; C9113; G0378; J1885; J2060; J2354; J2405; J2704; J3411; J3490; J7030; J7050

== ENCOUNTER 2022-01-03 03:11 | Inpatient (IN) | payer OTHER ==
[~2022-01-03] VITALS: Ht 185.4 cm; Wt 126.7 kg
[~2022-01-03 03:11] MED LIST: FOLI0.4T6 PO; LACT PO; MVIT PO; THIA100T78 PO
[2022-01-03] MEDS ORDERED: 0.9%NACL 1000ML 1,000 ML IV ONE (04:00)
[2022-01-03] MEDS ORDERED: ONDANSETRON 4MG INJ IVP ONE (04:00)
[2022-01-03] MEDS ORDERED: PANTOPRAZOLE 40 MG/VIAL IVP ONE (04:00)
[2022-01-03 04:05] LABS: AMPHET/METH SCREEN,URINE NEGATIVE (NEGATIVE); BARBITURATE SCREEN, URINE NEGATIVE (NEGATIVE); BENZODIAZEPINES SCREEN,URINE NEGATIVE (NEGATIVE); CANNABINOID SCREEN,URINE NEGATIVE (NEGATIVE); COCAINE SCREEN,URINE NEGATIVE (NEGATIVE); OPIATE SCREEN,URINE NEGATIVE (NEGATIVE); PHENCYCLIDINE SCREEN,URINE NEGATIVE (NEGATIVE)
[2022-01-03 04:31] LABS: BASOPHILS % (AUTO) 2.4 % (0.0-5.0); EOSINOPHILS % (AUTO) 1.8 % (0.0-8.0); HEMATOCRIT 38.8 % (42-54); LYMPHOCYTES % (AUTO) 29.9 % (21.0-51.0); MEAN CORPUSCULAR HEMOGLOBIN 31.4 pg (27.0-33.0); MEAN CORPUSCULAR VOLUME 92.2 fL (79-99); MONOCYTES % (AUTO) 10.1 % (3.0-13.0); NEUTROPHILS % (AUTO) 55.6 % (40.0-77.0); PLATELET COUNT (AUTO) 27 K/uL (130-400); RED BLOOD CELL COUNT(AUTO) 4.21 MIL/uL (4.50-6.20); RED CELL DISTRIBUTION WIDTH 14.2 % (11.0-15.5); WHITE BLOOD COUNT (AUTO) 6.2 K/uL (4.8-10.8)
[2022-01-03 04:40] LABS: INR 1.41 (0.85-1.15); PROTHROMBIN TIME 14.9 SEC (9.6-11.6)
[2022-01-03 04:41] LABS: PARTIAL THROMBOPLASTIN TIME 32.6 SEC (26.3-35.5)
[2022-01-03] MEDS: PANTOPRAZOLE 40MG INJ 80 MG in 0.9%NACL 100ML 100 ML IVP SCH ×2 (04:43→18:09)
[2022-01-03 04:59] LABS: CARBON DIOXIDE 28 mmol/L (21-32); CHLORIDE 102 mmol/L (101-111); CREATININE 0.6 mg/dL (0.5-1.5); GLOMERULAR FILTR. RATE CALC 167 mL/min (>60); GLUCOSE,RANDOM 103 mg/dL (70-105); POTASSIUM 3.3 mmol/L (3.5-5.1); SODIUM SERUM 138 mmol/L (136-145); UREA NITROGEN, BLOOD 2 mg/dL (7-18)
[2022-01-03 05:05] LABS: ALANINE AMINOTRANSFERASE 117 U/L (12-78); ALBUMIN 3.4 g/dL (3.5-5.0); ASPARTATE AMINOTRANSFERASE 258 U/L (10-37); BILIRUBIN,TOTAL 2.4 mg/dL (0.2-1.0); TOTAL PROTEIN, SERUM 8.5 g/dL (6.0-8.3)
[2022-01-03 05:07] LABS: ACETAMINOPHEN < 1 mcg/mL (10-29); SALICYLATE < 2.8 mg/dL (2.8-20.0)
[2022-01-03 05:08] LABS: ALCOHOL, BLOOD 385 mg/dL (0-10)
[2022-01-03] MEDS ORDERED: PHARMACY COMMUNICATION MISC PRN (05:30)
[2022-01-03] MEDS: OCTREOTIDE ACETATE 1,250 MCG in 0.9% NACL 250ML 250 ML IV SCH (06:07)
[2022-01-03] MEDS: FOLIC ACID 1 MG TABLET PO SCH (10:03)
[2022-01-03] MEDS: THIAMINE HCL 100 MG/ML 2ML VIAL IVP SCH (10:03)
[2022-01-03] MEDS: LORAZEPAM 2 MG/ML 1 ML VIAL IVP PRN ×2 (11:28→21:33)
[2022-01-03 11:30] VITALS: BP 116/62
[2022-01-03] MEDS ORDERED: COMPOUND IV MISC 1 EACH IVSOLN MISC PRN (13:30)
[2022-01-03 16:00] VITALS: BP 128/82
[2022-01-03 19:50] VITALS: BP 130/73
[2022-01-03 23:36] VITALS: BP 133/77
[2022-01-04 03:46] VITALS: BP 140/89
[2022-01-04 03:52] LABS: HEMATOCRIT 37.8 % (42-54); MEAN CORPUSCULAR HEMOGLOBIN 30.7 pg (27.0-33.0); MEAN CORPUSCULAR HGB CONC 33.3 g/dL (32.0-36.0); RED BLOOD CELL COUNT(AUTO) 4.11 MIL/uL (4.50-6.20); RED CELL DISTRIBUTION WIDTH 14.1 % (11.0-15.5); WHITE BLOOD COUNT (AUTO) 3.6 K/uL (4.8-10.8)
[2022-01-04 04:14] LABS: ALBUMIN 3.2 g/dL (3.5-5.0); BILIRUBIN,TOTAL 3.6 mg/dL (0.2-1.0); CREATININE 0.6 mg/dL (0.5-1.5); MAGNESIUM 1.7 mg/dL (1.80-2.40); POTASSIUM 3.9 mmol/L (3.5-5.1); TOTAL PROTEIN, SERUM 8.1 g/dL (6.0-8.3)
[2022-01-04] MEDS: PANTOPRAZOLE 40MG INJ 80 MG in 0.9%NACL 100ML 100 ML IVP SCH ×4 (04:37→15:05)
[2022-01-04] MEDS ORDERED: ONDANSETRON 4MG INJ ONE (04:51)
[2022-01-04] MEDS ORDERED: ONDANSETRON 4MG INJ IVP PRN (05:00)
[2022-01-04 08:00] VITALS: BP 127/80
[2022-01-04] MEDS: FOLIC ACID 1 MG TABLET PO SCH (09:29)
[2022-01-04] MEDS: THIAMINE HCL 100 MG/ML 2ML VIAL IVP SCH (09:29)
[2022-01-04 12:00] VITALS: BP 156/83
[2022-01-04] MEDS: LORAZEPAM 2 MG/ML 1 ML VIAL IVP PRN (12:19)
[2022-01-04 15:58] VITALS: BP 141/79
[2022-01-04] MEDS ORDERED: ACETAMINOPHEN 325 MG TAB PO PRN (16:00)
[2022-01-04] MEDS ORDERED: HYDROXYZINE 25 MG TABLET PO PRN (18:30)
[2022-01-04 19:18] VITALS: BP 136/84
[2022-01-04 23:37] VITALS: BP 150/88
[2022-01-05] MEDS: PANTOPRAZOLE 40MG INJ 80 MG in 0.9%NACL 100ML 100 ML IVP SCH (03:24)
[2022-01-05] MEDS: OCTREOTIDE ACETATE 1,250 MCG in 0.9% NACL 250ML 250 ML IV SCH (03:25)
[2022-01-05 04:00] VITALS: BP 139/74
[2022-01-05 04:37] LABS: BASOPHILS % (AUTO) 1.1 % (0.0-5.0); EOSINOPHILS % (AUTO) 2.5 % (0.0-8.0); HEMATOCRIT 37.5 % (42-54); LYMPHOCYTES % (AUTO) 13.4 % (21.0-51.0); MEAN CORPUSCULAR HEMOGLOBIN 30.8 pg (27.0-33.0); MEAN CORPUSCULAR HGB CONC 34.1 g/dL (32.0-36.0); MEAN CORPUSCULAR VOLUME 90.1 fL (79-99); MONOCYTES % (AUTO) 13.4 % (3.0-13.0); NEUTROPHILS % (AUTO) 69.4 % (40.0-77.0); PLATELET COUNT (AUTO) 20 K/uL (130-400); RED BLOOD CELL COUNT(AUTO) 4.16 MIL/uL (4.50-6.20); RED CELL DISTRIBUTION WIDTH 13.6 % (11.0-15.5); WHITE BLOOD COUNT (AUTO) 4.4 K/uL (4.8-10.8)
[2022-01-05 04:56] LABS: BILIRUBIN,TOTAL 5.2 mg/dL (0.2-1.0); CREATININE 0.6 mg/dL (0.5-1.5); MAGNESIUM 1.4 mg/dL (1.80-2.40); POTASSIUM 3.7 mmol/L (3.5-5.1); TOTAL PROTEIN, SERUM 7.8 g/dL (6.0-8.3)
[2022-01-05 07:00] VITALS: BP 142/92
[2022-01-05] MEDS: THIAMINE HCL 100 MG/ML 2ML VIAL IVP SCH (08:07)
[2022-01-05] MEDS: MAGNESIUM 2GM PREMIX 50ML 50 ML IV SCH ×2 (08:08→13:12)
[2022-01-05] MEDS: FOLIC ACID 1 MG TABLET PO SCH (08:08)
[2022-01-05] MEDS ORDERED: MAGNESIUM 2GM PREMIX 50ML 50 ML IV PRN (10:00)
[2022-01-05 11:15] VITALS: BP 145/80
[2022-01-05] MEDS ORDERED: PANTOPRAZOLE 40 MG TAB DR PO SCH ×2 (11:49→16:30)
[2022-01-05 15:50] VITALS: BP 159/70
== END 2022-01-05 16:00 | disposition home or self-care (01) | DRG 432 ==
LOC: EDH 03:11 → EDHIP 05:24 → 2DH 09:01
PROVIDERS: ADMIT Internal Medicine Infectious Disease; ATTEND Internal Medicine Infectious Disease
DX: K70.30 Alcoholic cirrhosis of liver without ascites (principal); K29.71 Gastritis, unspecified, with bleeding; R45.851 Suicidal ideations; D61.818 Other pancytopenia; F10.139 Alcohol abuse with withdrawal, unspecified; K70.10 Alcoholic hepatitis without ascites; E87.6 Hypokalemia; D69.6 Thrombocytopenia, unspecified; E66.01 Morbid (severe) obesity due to excess calories; Z68.36 Body mass index [BMI] 36.0-36.9, adult; Z91.14 Patient's other noncompliance with medication regimen; E83.42 Hypomagnesemia; F31.9 Bipolar disorder, unspecified; F14.90 Cocaine use, unspecified, uncomplicated; I10 Essential (primary) hypertension; F41.9 Anxiety disorder, unspecified; Y90.8 Blood alcohol level of 240 mg/100 ml or more; Z91.19 Patient's noncompliance with other medical treatment and regimen; F10.129 Alcohol abuse with intoxication, unspecified
CPT/HCPCS: 36415; 80053; 80305; 81001; 82140; 83735; 83883; 85025; 85027; 85610; 85730; 86334; 86850; 86900; 86901; 93005; 96361; 96365; 99291; C9113; G0378; G0481; J2060; J2354; J2405; J3411; J3475; J3490; J7030; J7050

== ENCOUNTER 2022-05-08 23:11 | Inpatient (IN) | payer OTHER ==
[~2022-05-08] VITALS: Ht 182.9 cm; Wt 142.1 kg
[~2022-05-08 23:11] MED LIST changes: -FOLI0.4T6 PO; -LACT PO; +LACT10SO32 PO; -MVIT PO; +PANT40TA54 PO; +PROP10TA10 PO; +THIA100T75 PO; -THIA100T78 PO; +TRAZ-187 PO
[2022-05-09 00:01] LABS: BASOPHILS % (AUTO) 1.3 % (0.0-5.0); EOSINOPHILS % (AUTO) 1.3 % (0.0-8.0); HEMATOCRIT 33.1 % (42-54); LYMPHOCYTES % (AUTO) 22.5 % (21.0-51.0); MEAN CORPUSCULAR HEMOGLOBIN 32.7 pg (27.0-33.0); MEAN CORPUSCULAR VOLUME 93.2 fL (79-99); MONOCYTES % (AUTO) 12.6 % (3.0-13.0); PLATELET COUNT (AUTO) 32 K/uL (130-400); RED BLOOD CELL COUNT(AUTO) 3.55 MIL/uL (4.50-6.20); WHITE BLOOD COUNT (AUTO) 6.8 K/uL (4.8-10.8)
[2022-05-09 00:12] LABS: CREATININE 0.6 mg/dL (0.5-1.5); POTASSIUM 3.4 mmol/L (3.5-5.1)
[2022-05-09 00:13] LABS: INR 1.4 (0.85-1.15)
[2022-05-09 00:15] LABS: PARTIAL THROMBOPLASTIN TIME 32.4 SEC (26.3-35.5)
[2022-05-09 00:17] LABS: ALBUMIN 2.6 g/dL (3.5-5.0); TOTAL PROTEIN, SERUM 7.5 g/dL (6.0-8.3)
[2022-05-09 00:36] LABS: APPEARANCE,URINE CLEAR (CLEAR); BILIRUBIN,URINE NEGATIVE (NEGATIVE); COLOR,URINE YELLOW (YELLOW); GLUCOSE, URINE (UA) NEGATIVE (NEGATIVE); KETONES,URINE NEGATIVE (NEGATIVE); LEUKOCYTE ESTERASE ,URINE NEGATIVE (NEGATIVE); NITRATE,URINE NEGATIVE (NEGATIVE); OCCULT BLOOD,URINE NEGATIVE (NEGATIVE); PH,URINE 6.5 (5.0-8.0); PROTEIN,URINE NEGATIVE (NEGATIVE)
[2022-05-09] MEDS ORDERED: CEFTRIAXONE 1G VIAL IVP ONE (01:00)
[2022-05-09] MEDS ORDERED: TETANUS/DIPHTHERIA TOXOID [ADULT] 0.5 ML VIAL IM ONE (01:30)
[2022-05-09] MEDS ORDERED: VANCOMYCIN PROTOCOL PER PHARMACY IV SCH (02:00)
[2022-05-09] MEDS ORDERED: VANCOMYCIN 1G/250ML KIT 250 ML IV ONE (02:00)
[2022-05-09] MEDS: CEFEPIME HCL 2 GM VIAL IVP SCH ×3 (05:26→20:08)
[2022-05-09 05:53] LABS: BASOPHILS % (AUTO) 1.3 % (0.0-5.0); EOSINOPHILS % (AUTO) 2.6 % (0.0-8.0); HEMATOCRIT 30.1 % (42-54); MEAN CORPUSCULAR HEMOGLOBIN 32.5 pg (27.0-33.0); MEAN CORPUSCULAR HGB CONC 35.2 g/dL (32.0-36.0); MEAN CORPUSCULAR VOLUME 92.3 fL (79-99); MONOCYTES % (AUTO) 12.6 % (3.0-13.0); NEUTROPHILS % (AUTO) 64.1 % (40.0-77.0); PLATELET COUNT (AUTO) 29 K/uL (130-400); RED BLOOD CELL COUNT(AUTO) 3.26 MIL/uL (4.50-6.20); RED CELL DISTRIBUTION WIDTH 14.2 % (11.0-15.5); WHITE BLOOD COUNT (AUTO) 4.5 K/uL (4.8-10.8)
[2022-05-09 05:56] LABS: CREATININE 0.6 mg/dL (0.5-1.5); MAGNESIUM 1.8 mg/dL (1.80-2.40); POTASSIUM 3.2 mmol/L (3.5-5.1)
[2022-05-09] MEDS ORDERED: DIAZEPAM 5 MG/ML 2 ML SYG ONE (06:41)
[2022-05-09] MEDS: ONDANSETRON 4MG TABLET PO PRN ×2 (06:53→15:34)
[2022-05-09] MEDS ORDERED: PHARMACY COMMUNICATION MISC PRN (07:00)
[2022-05-09 07:08] LABS: AMPHET/METH SCREEN,URINE NEGATIVE (NEGATIVE); BARBITURATE SCREEN, URINE NEGATIVE (NEGATIVE); BENZODIAZEPINES SCREEN,URINE NEGATIVE (NEGATIVE); CANNABINOID SCREEN,URINE NEGATIVE (NEGATIVE); COCAINE SCREEN,URINE NEGATIVE (NEGATIVE); PHENCYCLIDINE SCREEN,URINE NEGATIVE (NEGATIVE)
[2022-05-09] MEDS: INSULIN HUMULIN R 100 UNIT/ML 3ML SQ SCH ×4 (07:20→21:00)
[2022-05-09] MEDS: ENOXAPARIN SODIUM 30 MG/0.3 ML SQ SCH (08:53)
[2022-05-09] MEDS ORDERED: VANCOMYCIN 2GM/500 ML BAG 500 ML IV SCH (09:00)
[2022-05-09] MEDS: THIAMINE HCL 100 MG TABLET PO SCH (09:04)
[2022-05-09] MEDS: FOLIC ACID 1 MG TABLET PO SCH (09:04)
[2022-05-09 09:30] VITALS: BP 110/56
[2022-05-09 12:00] VITALS: BP 120/73
[2022-05-09] MEDS ORDERED: POTASSIUM CHLORIDE 10% ELIXIR 20 MEQ/15 ML UDCUP PO PRN (12:00)
[2022-05-09] MEDS ORDERED: POTASSIUM CHLORIDE 20MEQ/100ML 100 ML IV PRN (12:00)
[2022-05-09] MEDS ORDERED: LIDOCAINE HCL-MPF 1% 2ML VIAL IV PRN (12:00)
[2022-05-09] MEDS: ACETAMINOPHEN 325 MG TAB PO PRN ×2 (13:02→20:10)
[2022-05-09] MEDS: KCL 20 MEQ ERTAB PO PRN ×3 (13:22→18:34)
[2022-05-09] MEDS: MAGNESIUM 2GM PREMIX 50ML 50 ML IV PRN (13:59)
[2022-05-09] MEDS: DIAZEPAM 5 MG/ML 2 ML SYG IV PRN (15:05)
[2022-05-09] MEDS ORDERED: ONDANSETRON 4MG INJ IVP PRN (15:30)
[2022-05-09 16:00] VITALS: BP 112/49
[2022-05-09 20:00] VITALS: BP 130/61
[2022-05-09] MEDS ORDERED: FAMOTIDINE 20MG VIAL IV ONE (20:05)
[2022-05-09] MEDS: CHLORDIAZEPOXIDE HCL 25 MG CAP PO PRN (20:24)
[2022-05-09] MEDS: VANCOMYCIN 1.75 GM/250 ML BAG 250 ML IV SCH (22:00)
[2022-05-10 00:26] VITALS: BP 138/71
[2022-05-10] MEDS: CHLORDIAZEPOXIDE HCL 25 MG CAP PO PRN ×4 (01:07→17:14)
[2022-05-10 04:12] VITALS: BP 121/73
[2022-05-10 05:18] LABS: HEMATOCRIT 32.6 % (42-54); MEAN CORPUSCULAR HEMOGLOBIN 31.9 pg (27.0-33.0); MEAN CORPUSCULAR VOLUME 93.7 fL (79-99); RED BLOOD CELL COUNT(AUTO) 3.48 MIL/uL (4.50-6.20); RED CELL DISTRIBUTION WIDTH 14.1 % (11.0-15.5); WHITE BLOOD COUNT (AUTO) 3.8 K/uL (4.8-10.8)
[2022-05-10 05:38] LABS: ALBUMIN 2.4 g/dL (3.5-5.0); CREATININE 0.6 mg/dL (0.5-1.5); MAGNESIUM 1.7 mg/dL (1.80-2.40); PHOSPHORUS 2.7 mg/dL (2.5-4.9); POTASSIUM 3.9 mmol/L (3.5-5.1); TOTAL PROTEIN, SERUM 6.8 g/dL (6.0-8.3)
[2022-05-10] MEDS: CEFEPIME HCL 2 GM VIAL IVP SCH ×3 (05:57→21:15)
[2022-05-10] MEDS: INSULIN HUMULIN R 100 UNIT/ML 3ML SQ SCH ×4 (05:58→21:00)
[2022-05-10] MEDS: VANCOMYCIN 1.75 GM/250 ML BAG 250 ML IV SCH ×3 (05:58→21:26)
[2022-05-10] MEDS ORDERED: D-ME118S47 PO (06:04)
[2022-05-10 08:16] VITALS: BP 139/78
[2022-05-10] MEDS: ENOXAPARIN SODIUM 30 MG/0.3 ML SQ SCH (08:55)
[2022-05-10] MEDS: THIAMINE HCL 100 MG TABLET PO SCH (08:58)
[2022-05-10] MEDS: FOLIC ACID 1 MG TABLET PO SCH (08:58)
[2022-05-10] MEDS: CYANOCOBALAMIN (VITAMIN B-12) 1,000 MCG TABLET PO SCH (08:58)
[2022-05-10] MEDS: MAGNESIUM 2GM PREMIX 50ML 50 ML IV PRN (09:04)
[2022-05-10 12:00] VITALS: BP 132/86
[2022-05-10 16:00] VITALS: BP 131/73
[2022-05-10] MEDS: PANTOPRAZOLE 40 MG/VIAL IVP SCH (21:15)
[2022-05-10 21:30] VITALS: BP 123/69
[2022-05-11] MEDS: DIAZEPAM 5 MG/ML 2 ML SYG IV PRN ×2 (03:41→21:06)
[2022-05-11 04:33] VITALS: BP 130/79
[2022-05-11 05:06] LABS: HEMATOCRIT 31.3 % (42-54); MEAN CORPUSCULAR HEMOGLOBIN 32.2 pg (27.0-33.0); MEAN CORPUSCULAR HGB CONC 34.5 g/dL (32.0-36.0); MEAN CORPUSCULAR VOLUME 93.4 fL (79-99); RED BLOOD CELL COUNT(AUTO) 3.35 MIL/uL (4.50-6.20); RED CELL DISTRIBUTION WIDTH 14.1 % (11.0-15.5); WHITE BLOOD COUNT (AUTO) 4.3 K/uL (4.8-10.8)
[2022-05-11 05:40] LABS: ALBUMIN 2.2 g/dL (3.5-5.0); CREATININE 0.6 mg/dL (0.5-1.5); MAGNESIUM 1.8 mg/dL (1.80-2.40); POTASSIUM 3.8 mmol/L (3.5-5.1); TOTAL PROTEIN, SERUM 6.6 g/dL (6.0-8.3)
[2022-05-11] MEDS: CEFEPIME HCL 2 GM VIAL IVP SCH ×3 (05:58→21:03)
[2022-05-11] MEDS: INSULIN HUMULIN R 100 UNIT/ML 3ML SQ SCH ×4 (06:05→21:00)
[2022-05-11 08:00] VITALS: BP 132/66
[2022-05-11] MEDS: FOLIC ACID 1 MG TABLET PO SCH (08:03)
[2022-05-11] MEDS: THIAMINE HCL 100 MG TABLET PO SCH (08:03)
[2022-05-11] MEDS: PANTOPRAZOLE 40 MG/VIAL IVP SCH ×2 (08:03→21:03)
[2022-05-11] MEDS: CHLORDIAZEPOXIDE HCL 25 MG CAP PO PRN (08:03)
[2022-05-11] MEDS: CYANOCOBALAMIN (VITAMIN B-12) 1,000 MCG TABLET PO SCH (08:03)
[2022-05-11] MEDS: ENOXAPARIN SODIUM 30 MG/0.3 ML SQ SCH (08:07)
[2022-05-11 11:58] VITALS: BP 120/53
[2022-05-11] MEDS: VANCOMYCIN 2GM/500 ML BAG 500 ML IV SCH ×2 (13:47→22:58)
[2022-05-11] MEDS ORDERED: ZOSYN 3.375GM +NS 50ML IV SCH (14:05)
[2022-05-11 16:00] VITALS: BP 111/41
[2022-05-11] MEDS: ZOSYN 3.375GM +NS 50ML IV SCH (16:28)
[2022-05-11 20:00] VITALS: BP 115/64
[2022-05-12] VITALS: BP 120/69
[2022-05-12] MEDS: ZOSYN 3.375GM +NS 50ML IV SCH ×2 (01:10→09:08)
[2022-05-12 04:00] VITALS: BP 128/88
[2022-05-12] MEDS: CEFEPIME HCL 2 GM VIAL IVP SCH ×3 (05:04→21:42)
[2022-05-12] MEDS: INSULIN HUMULIN R 100 UNIT/ML 3ML SQ SCH ×4 (05:07→21:00)
[2022-05-12 06:39] LABS: HEMATOCRIT 32.1 % (42-54); MEAN CORPUSCULAR HEMOGLOBIN 32.3 pg (27.0-33.0); MEAN CORPUSCULAR HGB CONC 34.3 g/dL (32.0-36.0); MEAN CORPUSCULAR VOLUME 94.1 fL (79-99); RED BLOOD CELL COUNT(AUTO) 3.41 MIL/uL (4.50-6.20); RED CELL DISTRIBUTION WIDTH 14.4 % (11.0-15.5); WHITE BLOOD COUNT (AUTO) 4.3 K/uL (4.8-10.8)
[2022-05-12 07:00] VITALS: BP 105/41
[2022-05-12] MEDS: ENOXAPARIN SODIUM 30 MG/0.3 ML SQ SCH (09:00)
[2022-05-12] MEDS: CYANOCOBALAMIN (VITAMIN B-12) 1,000 MCG TABLET PO SCH (09:06)
[2022-05-12] MEDS: FOLIC ACID 1 MG TABLET PO SCH (09:06)
[2022-05-12] MEDS: THIAMINE HCL 100 MG TABLET PO SCH (09:06)
[2022-05-12] MEDS: PANTOPRAZOLE 40 MG/VIAL IVP SCH ×2 (09:06→21:42)
[2022-05-12] MEDS: VANCOMYCIN 2GM/500 ML BAG 500 ML IV SCH ×3 (09:08→17:36)
[2022-05-12 11:05] VITALS: BP 107/55
[2022-05-12 15:05] VITALS: BP 127/69
[2022-05-12] MEDS ORDERED: ZOSYN 3.375GM +NS 50ML IV SCH (18:00)
[2022-05-12 20:00] VITALS: BP 115/80
[2022-05-13] VITALS: BP 113/58
[2022-05-13] MEDS: ZOSYN 3.375GM +NS 50ML IV SCH ×3 (02:01→17:59)
[2022-05-13] MEDS: VANCOMYCIN 2GM/500 ML BAG 500 ML IV SCH ×3 (02:02→17:59)
[2022-05-13 04:00] VITALS: BP 125/68
[2022-05-13] MEDS: CEFEPIME HCL 2 GM VIAL IVP SCH ×3 (05:02→20:11)
[2022-05-13] MEDS: INSULIN HUMULIN R 100 UNIT/ML 3ML SQ SCH ×4 (05:58→21:00)
[2022-05-13] MEDS: THIAMINE HCL 100 MG TABLET PO SCH (08:46)
[2022-05-13] MEDS: FOLIC ACID 1 MG TABLET PO SCH (08:46)
[2022-05-13] MEDS: CYANOCOBALAMIN (VITAMIN B-12) 1,000 MCG TABLET PO SCH (08:46)
[2022-05-13] MEDS: PANTOPRAZOLE 40 MG/VIAL IVP SCH ×2 (08:46→20:09)
[2022-05-13] MEDS: ENOXAPARIN SODIUM 30 MG/0.3 ML SQ SCH (08:47)
[2022-05-13] MEDS: ACETAMINOPHEN 325 MG TAB PO PRN (10:09)
[2022-05-13 12:00] VITALS: BP 126/59
[2022-05-13] MEDS ORDERED: IOHEXOL-350 50ML VIAL IV ONE (13:37)
[2022-05-13] MEDS ORDERED: LACT10SO5 PO (15:24)
[2022-05-13] MEDS ORDERED: PROP10TA10 PO (15:24)
[2022-05-13 16:00] VITALS: BP 136/60
[2022-05-13 20:39] VITALS: BP 126/64
[2022-05-14 00:29] VITALS: BP 132/67
[2022-05-14] MEDS: ZOSYN 3.375GM +NS 50ML IV SCH ×3 (01:14→18:51)
[2022-05-14] MEDS: VANCOMYCIN 2GM/500 ML BAG 500 ML IV SCH ×3 (01:15→18:51)
[2022-05-14 04:26] LABS: HEMATOCRIT 34.6 % (42-54); MEAN CORPUSCULAR HEMOGLOBIN 32.2 pg (27.0-33.0); MEAN CORPUSCULAR HGB CONC 33.5 g/dL (32.0-36.0); MEAN CORPUSCULAR VOLUME 96.1 fL (79-99); RED BLOOD CELL COUNT(AUTO) 3.6 MIL/uL (4.50-6.20); RED CELL DISTRIBUTION WIDTH 14.4 % (11.0-15.5); WHITE BLOOD COUNT (AUTO) 5.6 K/uL (4.8-10.8)
[2022-05-14 04:46] LABS: ALBUMIN 2.5 g/dL (3.5-5.0); CREATININE 0.6 mg/dL (0.5-1.5); MAGNESIUM 1.9 mg/dL (1.80-2.40); POTASSIUM 4.1 mmol/L (3.5-5.1); TOTAL PROTEIN, SERUM 7.4 g/dL (6.0-8.3)
[2022-05-14 05:27] VITALS: BP 127/61
[2022-05-14] MEDS: CEFEPIME HCL 2 GM VIAL IVP SCH ×3 (05:27→21:54)
[2022-05-14] MEDS: INSULIN HUMULIN R 100 UNIT/ML 3ML SQ SCH ×4 (05:51→21:00)
[2022-05-14 08:15] VITALS: BP 121/63
[2022-05-14] MEDS: THIAMINE HCL 100 MG TABLET PO SCH (09:17)
[2022-05-14] MEDS: PANTOPRAZOLE 40 MG/VIAL IVP SCH ×2 (09:17→21:54)
[2022-05-14] MEDS: CYANOCOBALAMIN (VITAMIN B-12) 1,000 MCG TABLET PO SCH (09:17)
[2022-05-14] MEDS: FOLIC ACID 1 MG TABLET PO SCH (09:17)
[2022-05-14] MEDS: ENOXAPARIN SODIUM 30 MG/0.3 ML SQ SCH (09:19)
[2022-05-14 11:38] VITALS: BP 120/65
[2022-05-14 15:41] VITALS: BP 131/70
[2022-05-14 21:15] VITALS: BP 134/62
[2022-05-14] MEDS: CLONIDINE HCL 0.2 MG TABLET PO SCH (21:55)
[2022-05-15 01:19] VITALS: BP 104/58
[2022-05-15] MEDS: ZOSYN 3.375GM +NS 50ML IV SCH ×3 (03:21→18:07)
[2022-05-15] MEDS: VANCOMYCIN 2GM/500 ML BAG 500 ML IV SCH ×2 (03:21→10:39)
[2022-05-15] MEDS: DIAZEPAM 5 MG/ML 2 ML SYG IV PRN (03:22)
[2022-05-15 04:28] VITALS: BP 101/56
[2022-05-15] MEDS: CEFEPIME HCL 2 GM VIAL IVP SCH (05:54)
[2022-05-15] MEDS: INSULIN HUMULIN R 100 UNIT/ML 3ML SQ SCH ×3 (05:55→16:30)
[2022-05-15] MEDS: ENOXAPARIN SODIUM 30 MG/0.3 ML SQ SCH (07:30)
[2022-05-15] MEDS: CYANOCOBALAMIN (VITAMIN B-12) 1,000 MCG TABLET PO SCH (07:30)
[2022-05-15] MEDS: PANTOPRAZOLE 40 MG/VIAL IVP SCH ×2 (07:30→21:06)
[2022-05-15] MEDS: THIAMINE HCL 100 MG TABLET PO SCH (07:30)
[2022-05-15] MEDS: FOLIC ACID 1 MG TABLET PO SCH (07:30)
[2022-05-15] MEDS: ACETAMINOPHEN 325 MG TAB PO PRN (07:31)
[2022-05-15 08:29] VITALS: BP 111/64
[2022-05-15 11:14] VITALS: BP 94/48
[2022-05-15 16:02] VITALS: BP 112/71
[2022-05-15 21:00] VITALS: BP 118/56
[2022-05-15] MEDS: CLONIDINE HCL 0.2 MG TABLET PO SCH (21:54)
[2022-05-16 00:25] VITALS: BP 104/50
[2022-05-16] MEDS: ZOSYN 3.375GM +NS 50ML IV SCH ×3 (02:49→18:17)
[2022-05-16 04:33] VITALS: BP 124/61
[2022-05-16 08:00] VITALS: BP 124/84
[2022-05-16] MEDS: FOLIC ACID 1 MG TABLET PO SCH (11:58)
[2022-05-16] MEDS: PANTOPRAZOLE 40 MG/VIAL IVP SCH ×2 (11:58→21:52)
[2022-05-16] MEDS: ENOXAPARIN SODIUM 30 MG/0.3 ML SQ SCH (11:58)
[2022-05-16] MEDS: THIAMINE HCL 100 MG TABLET PO SCH (11:58)
[2022-05-16 12:00] VITALS: BP 126/67
[2022-05-16] MEDS: CYANOCOBALAMIN (VITAMIN B-12) 1,000 MCG TABLET PO SCH (12:00)
[2022-05-16 15:35] LABS: INR 1.49 (0.85-1.15); PROTHROMBIN TIME 15.9 SEC (9.6-11.6)
[2022-05-16 15:36] LABS: PARTIAL THROMBOPLASTIN TIME 33.3 SEC (26.3-35.5)
[2022-05-16 16:00] VITALS: BP 119/61
[2022-05-16 20:30] VITALS: BP 136/66
[2022-05-16] MEDS: ACETAMINOPHEN 325 MG TAB PO PRN (21:53)
[2022-05-16] MEDS: CLONIDINE HCL 0.2 MG TABLET PO SCH (21:54)
[2022-05-16] MEDS: DIAZEPAM 5 MG/ML 2 ML SYG IV PRN (22:35)
[2022-05-17 00:04] VITALS: BP 109/50
[2022-05-17] MEDS: ZOSYN 3.375GM +NS 50ML IV SCH ×3 (01:21→18:41)
[2022-05-17 04:16] LABS: HEMATOCRIT 30.9 % (42-54); MEAN CORPUSCULAR HEMOGLOBIN 32.3 pg (27.0-33.0); MEAN CORPUSCULAR HGB CONC 33.7 g/dL (32.0-36.0); RED BLOOD CELL COUNT(AUTO) 3.22 MIL/uL (4.50-6.20); RED CELL DISTRIBUTION WIDTH 14.1 % (11.0-15.5); WHITE BLOOD COUNT (AUTO) 4.2 K/uL (4.8-10.8)
[2022-05-17 04:39] LABS: ALBUMIN 2.1 g/dL (3.5-5.0); CREATININE 0.7 mg/dL (0.5-1.5); MAGNESIUM 1.9 mg/dL (1.80-2.40); TOTAL PROTEIN, SERUM 6.1 g/dL (6.0-8.3)
[2022-05-17] MEDS: MAGNESIUM 2GM PREMIX 50ML 50 ML IV PRN (05:27)
[2022-05-17 06:20] VITALS: BP 137/78
[2022-05-17] MEDS: ENOXAPARIN SODIUM 30 MG/0.3 ML SQ SCH (07:41)
[2022-05-17] MEDS: THIAMINE HCL 100 MG TABLET PO SCH (07:42)
[2022-05-17] MEDS: CYANOCOBALAMIN (VITAMIN B-12) 1,000 MCG TABLET PO SCH (07:42)
[2022-05-17] MEDS: PANTOPRAZOLE 40 MG/VIAL IVP SCH ×2 (07:42→19:52)
[2022-05-17] MEDS: FOLIC ACID 1 MG TABLET PO SCH (07:42)
[2022-05-17 08:00] VITALS: BP 143/60
[2022-05-17 12:00] VITALS: BP 112/57
[2022-05-17 16:00] VITALS: BP 107/49
[2022-05-17] MEDS: CLONIDINE HCL 0.2 MG TABLET PO SCH (19:52)
[2022-05-17 20:04] VITALS: BP 111/69
[2022-05-18] VITALS (7 sets, daily range): BP systolic 104–132; BP diastolic 53–74
[2022-05-18] MEDS: ZOSYN 3.375GM +NS 50ML IV SCH ×3 (01:08→17:38)
[2022-05-18] MEDS: DIAZEPAM 5 MG/ML 2 ML SYG IV PRN (01:08)
[2022-05-18] MEDS: ENOXAPARIN SODIUM 30 MG/0.3 ML SQ SCH (08:12)
[2022-05-18] MEDS: FOLIC ACID 1 MG TABLET PO SCH (08:12)
[2022-05-18] MEDS: CYANOCOBALAMIN (VITAMIN B-12) 1,000 MCG TABLET PO SCH (08:12)
[2022-05-18] MEDS: PANTOPRAZOLE 40 MG/VIAL IVP SCH ×2 (08:12→19:58)
[2022-05-18] MEDS: THIAMINE HCL 100 MG TABLET PO SCH (08:12)
[2022-05-18] MEDS: CLONIDINE HCL 0.2 MG TABLET PO SCH (19:59)
[2022-05-19] MEDS: ZOSYN 3.375GM +NS 50ML IV SCH ×2 (01:45→08:27)
[2022-05-19 04:00] VITALS: BP 120/59
[2022-05-19 05:06] LABS: HEMATOCRIT 33.5 % (42-54); MEAN CORPUSCULAR HEMOGLOBIN 32.6 pg (27.0-33.0); MEAN CORPUSCULAR VOLUME 95.7 fL (79-99); RED BLOOD CELL COUNT(AUTO) 3.5 MIL/uL (4.50-6.20); WHITE BLOOD COUNT (AUTO) 5.3 K/uL (4.8-10.8)
[2022-05-19 05:25] LABS: ALBUMIN 2.4 g/dL (3.5-5.0); CREATININE 0.6 mg/dL (0.5-1.5); MAGNESIUM 1.7 mg/dL (1.80-2.40); POTASSIUM 3.9 mmol/L (3.5-5.1); TOTAL PROTEIN, SERUM 7.1 g/dL (6.0-8.3)
[2022-05-19 07:10] VITALS: BP 121/68
[2022-05-19] MEDS: ENOXAPARIN SODIUM 30 MG/0.3 ML SQ SCH (08:27)
[2022-05-19] MEDS: THIAMINE HCL 100 MG TABLET PO SCH (08:27)
[2022-05-19] MEDS: FOLIC ACID 1 MG TABLET PO SCH (08:27)
[2022-05-19] MEDS: CYANOCOBALAMIN (VITAMIN B-12) 1,000 MCG TABLET PO SCH (08:28)
[2022-05-19] MEDS: PANTOPRAZOLE 40 MG/VIAL IVP SCH (08:28)
[2022-05-19 11:10] VITALS: BP 97/48
== END 2022-05-19 16:00 | DRG 872 ==
LOC: EDH 23:11 → EDHIP 05-09 01:38 → 4AH 05-09 09:02
PROVIDERS: ADMIT Internal Medicine Infectious Disease; ATTEND Internal Medicine Infectious Disease
DX: A41.50 Gram-negative sepsis, unspecified (principal); L03.115 Cellulitis of right lower limb; F10.239 Alcohol dependence with withdrawal, unspecified; D68.9 Coagulation defect, unspecified; Z94.4 Liver transplant status; L03.116 Cellulitis of left lower limb; F31.60 Bipolar disorder, current episode mixed, unspecified; Z68.41 Body mass index [BMI] 40.0-44.9, adult; E11.621 Type 2 diabetes mellitus with foot ulcer; I10 Essential (primary) hypertension; K74.60 Unspecified cirrhosis of liver; F10.229 Alcohol dependence with intoxication, unspecified; F17.210 Nicotine dependence, cigarettes, uncomplicated; F20.9 Schizophrenia, unspecified; E66.01 Morbid (severe) obesity due to excess calories; K76.9 Liver disease, unspecified; S91.101A Unspecified open wound of right great toe without damage to nail, initial encounter; L97.529 Non-pressure chronic ulcer of other part of left foot with unspecified severity; X58.XXXA Exposure to other specified factors, initial encounter; L97.519 Non-pressure chronic ulcer of other part of right foot with unspecified severity; E87.6 Hypokalemia; F41.1 Generalized anxiety disorder; K70.10 Alcoholic hepatitis without ascites; K04.7 Periapical abscess without sinus; J03.90 Acute tonsillitis, unspecified; F90.9 Attention-deficit hyperactivity disorder, unspecified type; Z91.19 Patient's noncompliance with other medical treatment and regimen; Z83.3 Family history of diabetes mellitus; Z74.01 Bed confinement status; Y93.89 Activity, other specified; Y92.89 Other specified places as the place of occurrence of the external cause; Y99.8 Other external cause status
CPT/HCPCS: 36415; 70491; 73630; 80048; 80053; 80202; 80305; 81003; 82948; 83605; 83690; 83735; 84100; 85025; 85027; 85610; 85730; 87040; 90714; 93970; C1894; C9113; G0378; J0692; J0696; J1650; J2405; J2543; J3360; J3370; J3475; J3490; Q0162; Q9967

== ENCOUNTER 2022-06-13 02:16 | Emergency (ER) | payer OTHER ==
[~2022-06-13 02:16] MED LIST changes: -LACT10SO32 PO
[2022-06-13 02:39] LABS: EOSINOPHILS % (AUTO) 5.5 % (0.0-8.0); HEMATOCRIT 32.8 % (42-54); LYMPHOCYTES % (AUTO) 29.2 % (21.0-51.0); MEAN CORPUSCULAR HEMOGLOBIN 31.8 pg (27.0-33.0); MEAN CORPUSCULAR HGB CONC 35.4 g/dL (32.0-36.0); MEAN CORPUSCULAR VOLUME 89.9 fL (79-99); MONOCYTES % (AUTO) 7.7 % (3.0-13.0); NEUTROPHILS % (AUTO) 55.4 % (40.0-77.0); PLATELET COUNT (AUTO) 75 K/uL (130-400); RED BLOOD CELL COUNT(AUTO) 3.65 MIL/uL (4.50-6.20); RED CELL DISTRIBUTION WIDTH 14.5 % (11.0-15.5); WHITE BLOOD COUNT (AUTO) 6.4 K/uL (4.8-10.8)
[2022-06-13 02:47] LABS: CREATININE 0.6 mg/dL (0.5-1.5); POTASSIUM 3.6 mmol/L (3.5-5.1)
[2022-06-13 02:51] LABS: ALBUMIN 2.9 g/dL (3.5-5.0); TOTAL PROTEIN, SERUM 8.2 g/dL (6.0-8.3)
[2022-06-13 02:55] LABS: APPEARANCE,URINE CLEAR (CLEAR); BILIRUBIN,URINE NEGATIVE (NEGATIVE); COLOR,URINE YELLOW (YELLOW); GLUCOSE, URINE (UA) NEGATIVE (NEGATIVE); KETONES,URINE NEGATIVE (NEGATIVE); LEUKOCYTE ESTERASE ,URINE NEGATIVE Leu/uL (NEGATIVE); NITRATE,URINE NEGATIVE (NEGATIVE); OCCULT BLOOD,URINE NEGATIVE (NEGATIVE); PROTEIN,URINE NEGATIVE (NEGATIVE)
[2022-06-13 02:59] LABS: AMPHET/METH SCREEN,URINE NEGATIVE (NEGATIVE); BARBITURATE SCREEN, URINE NEGATIVE (NEGATIVE); BENZODIAZEPINES SCREEN,URINE NEGATIVE (NEGATIVE); CANNABINOID SCREEN,URINE NEGATIVE (NEGATIVE); COCAINE SCREEN,URINE POSITIVE (NEGATIVE); PHENCYCLIDINE SCREEN,URINE NEGATIVE (NEGATIVE)
[2022-06-13 04:19] LABS: ACETAMINOPHEN < 1 mcg/mL (10-29); SALICYLATE < 2.8 mg/dL (2.8-20.0)
[2022-06-13 04:20] LABS: ALCOHOL, BLOOD 360 mg/dL (0-10)
[2022-06-13 07:49] VITALS: BP 137/76
== END 2022-06-13 07:52 | disposition home or self-care (01) ==
LOC: EDH 02:16
DX: F10.121 Alcohol abuse with intoxication delirium (principal); K74.60 Unspecified cirrhosis of liver; F14.10 Cocaine abuse, uncomplicated; I10 Essential (primary) hypertension; Z79.899 Other long term (current) drug therapy; Y90.8 Blood alcohol level of 240 mg/100 ml or more
CPT/HCPCS: 99283; 80053; 80305; 82140; 83690; 85025; 36415; 81003; G0481

== ENCOUNTER 2023-03-09 23:43 | Emergency (ER) | payer OTHER ==
[~2023-03-09] VITALS: Ht 180.3 cm; Wt 108.9 kg
[~2023-03-09 23:43] MED LIST changes: +LACT10SO9 PO; +LEVO-70 PO; +ONDA22I PO
[2023-03-10 00:14] LABS: BASOPHILS % (AUTO) 2.8 % (0.0-5.0); EOSINOPHILS % (AUTO) 3.2 % (0.0-8.0); HEMATOCRIT 35.7 % (42-54); LYMPHOCYTES % (AUTO) 47.7 % (21.0-51.0); MEAN CORPUSCULAR HEMOGLOBIN 29.1 pg (27.0-33.0); MEAN CORPUSCULAR HGB CONC 33.1 g/dL (32.0-36.0); MEAN CORPUSCULAR VOLUME 88.1 fL (79-99); MONOCYTES % (AUTO) 8.3 % (3.0-13.0); NEUTROPHILS % (AUTO) 37.8 % (40.0-77.0); PLATELET COUNT (AUTO) 60 K/uL (130-400); RED BLOOD CELL COUNT(AUTO) 4.05 MIL/uL (4.50-6.20); RED CELL DISTRIBUTION WIDTH 14.6 % (11.0-15.5); WHITE BLOOD COUNT (AUTO) 6.2 K/uL (4.8-10.8)
[2023-03-10 00:25] LABS: CARBON DIOXIDE 25 mmol/L (21-32); CHLORIDE 107 mmol/L (101-111); CREATININE 0.7 mg/dL (0.5-1.5); GLOMERULAR FILTR. RATE CALC 126 mL/min (>90); GLUCOSE,RANDOM 112 mg/dL (70-105); POTASSIUM 3.4 mmol/L (3.5-5.1); SODIUM SERUM 141 mmol/L (136-145); UREA NITROGEN, BLOOD 2 mg/dL (7-18)
[2023-03-10 00:27] LABS: APPEARANCE,URINE CLEAR (CLEAR); BILIRUBIN,URINE NEGATIVE (NEGATIVE); COLOR,URINE YELLOW (YELLOW); GLUCOSE, URINE (UA) NEGATIVE (NEGATIVE); KETONES,URINE NEGATIVE (NEGATIVE); LEUKOCYTE ESTERASE ,URINE NEGATIVE Leu/uL (NEGATIVE); NITRATE,URINE NEGATIVE (NEGATIVE); OCCULT BLOOD,URINE NEGATIVE (NEGATIVE); PROTEIN,URINE NEGATIVE (NEGATIVE); UROBILINOGEN,URINE 0.2 mg/dL (0.2-1.0)
[2023-03-10 00:29] LABS: ALANINE AMINOTRANSFERASE 65 U/L (12-78); ALBUMIN 2.5 g/dL (3.5-5.0); AMMONIA 44 umol/L (11-32); ASPARTATE AMINOTRANSFERASE 134 U/L (10-37); CREATINE KINASE, TOTAL 357 U/L (21-232); TOTAL PROTEIN, SERUM 7.8 g/dL (6.0-8.3)
[2023-03-10 00:34] LABS: AMPHET/METH SCREEN,URINE POSITIVE (NEGATIVE); BARBITURATE SCREEN, URINE NEGATIVE (NEGATIVE); BENZODIAZEPINES SCREEN,URINE NEGATIVE (NEGATIVE); CANNABINOID SCREEN,URINE NEGATIVE (NEGATIVE); COCAINE SCREEN,URINE NEGATIVE (NEGATIVE); OPIATE SCREEN,URINE NEGATIVE (NEGATIVE); PHENCYCLIDINE SCREEN,URINE NEGATIVE (NEGATIVE)
[2023-03-10 00:35] LABS: ACETAMINOPHEN < 1 mcg/mL (10-29)
[2023-03-10 08:00] VITALS: BP 129/74
== END 2023-03-10 10:44 | disposition home or self-care (01) ==
LOC: EDH 23:43
DX: F10.129 Alcohol abuse with intoxication, unspecified (principal); K74.60 Unspecified cirrhosis of liver; F15.90 Other stimulant use, unspecified, uncomplicated; I10 Essential (primary) hypertension; F17.200 Nicotine dependence, unspecified, uncomplicated; J45.909 Unspecified asthma, uncomplicated; Z87.19 Personal history of other diseases of the digestive system; Z79.899 Other long term (current) drug therapy
CPT/HCPCS: 36415; 70450; 71045; 80053; 80305; 81003; 82140; 82550; 85025; 99291; 99292